=== PATIENT | female | born 1990 | race Caucasian/White ===

== ENCOUNTER → 2019-08-31 16:47 | Outpatient (CLI) | payer BC, SELFPAY ==
[2019-08-31 19:09] LABS: CRP < 2.90 mg/L (0.0-3.0)
[2019-09-03 14:07] LABS: Endomysial Antibody IgA Negative (Negative)
[2019-09-03 14:30] LABS: Immunoglobulin A 294 mg/dL (87-352); t-Transglutaminase IgA <2 U/mL (0-3)
== END ==
PROVIDERS: PCP Internal Medicine; Referring Provider Internal Medicine Gastroenterology; Visit Provider Internal Medicine Gastroenterology
DX: R19.7 Diarrhea, unspecified (principal); R10.9 Unspecified abdominal pain
CPT/HCPCS: 36415; 82784; 83516; 86140; 86255

== ENCOUNTER 2019-11-30 14:25 | Outpatient (RCR) | payer BC, SELFPAY | END 2019-12-14 23:59 | LOC: EMPH 14:25 | PROVIDERS: PCP Internal Medicine; Referring Provider Family Medicine Geriatric Medicine; Visit Provider Family Medicine Geriatric Medicine | DX: Z11.59 Encounter for screening for other viral diseases (principal) | CPT/HCPCS: 87635; U0003 ==

== ENCOUNTER 2020-01-12 08:54 | Outpatient (RCR) | payer OTHER, SELFPAY | END 2020-01-14 23:59 | LOC: EMPH 08:54 | PROVIDERS: PCP Internal Medicine; Referring Provider Family Medicine Geriatric Medicine; Visit Provider Family Medicine Geriatric Medicine | DX: Z03.818 Encounter for observation for suspected exposure to other biological agents ruled out (principal) | CPT/HCPCS: 87426 ==

== ENCOUNTER 2020-02-08 09:58 | Outpatient (RCR) | payer OTHER, SELFPAY | END 2020-02-13 23:59 | LOC: EMPH 09:58 | PROVIDERS: PCP Internal Medicine; Referring Provider Family Medicine Geriatric Medicine; Visit Provider Family Medicine Geriatric Medicine | DX: Z03.818 Encounter for observation for suspected exposure to other biological agents ruled out (principal) | CPT/HCPCS: 87426 ==

== ENCOUNTER → 2020-02-29 | Outpatient (CLI) | payer OTHER, SELFPAY ==
[2020-02-29 09:56] VITALS: BMI 25.0
[2020-02-29 16:20] LABS: Chlamydia Trachomatis by PCR Negative (Negative); Neisserai gonorrhoeae by PCR Negative (Negative); Probe Check PASS; Sample Adequacy Control PASS; Specimen Processing Control PASS
== END | disposition home or self-care (01) ==
LOC: LABSPEC 12:04
PROVIDERS: PCP Internal Medicine; Referring Provider Nurse Practitioner Women's Health; Visit Provider Nurse Practitioner Women's Health
DX: Z11.3 Encounter for screening for infections with a predominantly sexual mode of transmission (principal)
CPT/HCPCS: 87491; 87591

== ENCOUNTER → 2020-03-12 | Outpatient (CLI) | payer OTHER, SELFPAY ==
[2020-03-12 10:43] VITALS: BMI 24.3
== END | disposition home or self-care (01) ==
LOC: LABSPEC 12:54
PROVIDERS: PCP Internal Medicine; Referring Provider Nurse Practitioner Women's Health; Visit Provider Nurse Practitioner Women's Health
DX: R30.9 Painful micturition, unspecified (principal)
CPT/HCPCS: 87086

== ENCOUNTER 2020-03-14 14:13 | Outpatient (RCR) | payer OTHER, SELFPAY | END 2020-03-15 23:59 | LOC: EMPH 14:13 | PROVIDERS: PCP Internal Medicine; Referring Provider Family Medicine Geriatric Medicine; Visit Provider Family Medicine Geriatric Medicine | DX: Z03.818 Encounter for observation for suspected exposure to other biological agents ruled out (principal) | CPT/HCPCS: 87426 ==

== ENCOUNTER → 2020-04-02 15:23 | Outpatient (CLI) | payer OTHER, SELFPAY ==
[2020-04-02 14:22] VITALS: BMI 23.8
[2020-04-02 15:49] LABS: Absolute Lymphocyte Count 2.84 X10^3/uL (0.83-4.51); Absolute Neutrophil Count 7.7 X10^3/uL (2.0-7.7); Basophil# 0.05 X10^3/uL; Basophil% 0.4 % (0-1); Eosinophils% 1.7 % (0-5); Hematocrit 37.6 % (37-47); Hemoglobin 12.6 g/dL (12.0-15.0); Lymphocyte # 2.84 X10^3/ul (4.0); Lymphocyte % 24.5 % (19-41); Mean Corp Hgb Conc 33.5 g/dL (32-36); Mean Corpuscular Hgb 28.8 pg (27.0-32.0); Mean Corpuscular Volume 85.8 fL (81-99); Mean Platelet Vol. 10.1 fl (6.2-12.0); Monocyte# 0.74 X10^3/uL; Monocyte% 6.4 % (0-10); NRBC Flagged by Analyzer 0 % (0-5); Neutrophil # 7.72 X10^3/uL (2.7-7.7); Neutrophil % 66.7 % (47-70); Platelet Count 314 K/mm3 (150-450); RBC Distribution Width CV 12.3 % (11.6-14.6); RBC Distribution Width SD 38.6 fl (35.1-43.9); Red Blood Count 4.38 M/mm3 (4.2-5.4); White Blood Count 11.6 K/mm3 (4.4-11.0)
[2020-04-02 17:25] LABS: Amphetamine Urine VISTA NEGATIVE (<1000 ng/mL); Barbiturate Urine VISTA NEGATIVE (< 200 ng/mL); Benzodiazepine Urine VISTA NEGATIVE (< 200 ng/mL); Cocaine Urine VISTA NEGATIVE (< 300 ng/mL); Ecstacy Urine VISTA NEGATIVE (< 500 ng/mL); Methadone Urine VISTA NEGATIVE (< 300 ng/mL); PCP Urine VISTA NEGATIVE (< 25 ng/mL); THC Urine VISTA NEGATIVE (< 50 ng/mL); Vista UDS pH Range 6
[2020-04-03 09:13] LABS: HIV - WCH Non-Reactive (Nonreactive); Hepatitis B Surface Antigen Non-Reactive (Nonreactive); Hepatitis C Antibody Non-Reactive (Nonreactive); Rubella IgG Reactive (Nonreactive)
[2020-04-05 03:03] LABS: Rapid Plasmin Reagin (RPR) NONREACTIVE (NONREACTIVE)
== END ==
PROVIDERS: PCP Internal Medicine; Referring Provider Obstetrics & Gynecology; Visit Provider Obstetrics & Gynecology
DX: Z34.90 Encounter for supervision of normal pregnancy, unspecified, unspecified trimester (principal)
CPT/HCPCS: 36415; 80307; 85025; 86592; 86703; 86762; 86803; 86850; 86900; 86901; 87086; 87088; 87340

== ENCOUNTER 2020-04-13 14:14 | Outpatient (RCR) | payer OTHER, SELFPAY ==
[2020-03-12 10:43] VITALS: BMI 24.3
== END 2020-04-15 23:59 ==
LOC: EMPH 14:14
PROVIDERS: PCP Internal Medicine; Referring Provider Family Medicine Geriatric Medicine; Visit Provider Family Medicine Geriatric Medicine
DX: Z03.818 Encounter for observation for suspected exposure to other biological agents ruled out (principal)
CPT/HCPCS: 87426

== ENCOUNTER → 2020-05-04 | Outpatient (CLI) | payer OTHER, SELFPAY ==
[2020-05-04 13:04] VITALS: BMI 24.7
[2020-05-04 19:31] LABS: Chlamydia Trachomatis by PCR Negative (Negative); Neisserai gonorrhoeae by PCR Negative (Negative); Probe Check PASS; Sample Adequacy Control PASS; Specimen Processing Control PASS
== END | disposition home or self-care (01) ==
LOC: LABSPEC 16:45
PROVIDERS: PCP Internal Medicine; Referring Provider Obstetrics & Gynecology; Visit Provider Obstetrics & Gynecology
DX: Z34.90 Encounter for supervision of normal pregnancy, unspecified, unspecified trimester (principal)
CPT/HCPCS: 87491; 87591

== ENCOUNTER 2020-05-11 09:37 | Outpatient (RCR) | payer OTHER, SELFPAY ==
[2020-04-06 08:46] VITALS: BMI 24.0
== END 2020-05-13 23:59 ==
LOC: EMPH 09:37
PROVIDERS: PCP Internal Medicine; Referring Provider Family Medicine Geriatric Medicine; Visit Provider Family Medicine Geriatric Medicine
DX: Z03.818 Encounter for observation for suspected exposure to other biological agents ruled out (principal)
CPT/HCPCS: 87426

== ENCOUNTER 2020-06-04 10:41 | Outpatient (RCR) | payer OTHER, SELFPAY ==
[2020-05-04 13:04] VITALS: BMI 24.7
== END 2020-06-13 23:59 ==
LOC: EMPH 10:41
PROVIDERS: PCP Internal Medicine; Referring Provider Family Medicine Geriatric Medicine; Visit Provider Family Medicine Geriatric Medicine
DX: Z03.818 Encounter for observation for suspected exposure to other biological agents ruled out (principal)
CPT/HCPCS: 87426

== ENCOUNTER → 2020-06-22 13:47 | Outpatient (CLI) | payer OTHER, SELFPAY ==
[2020-05-04 13:04] VITALS: BMI 24.7
[2020-06-01 13:55] VITALS: BMI 25.2
--- NOTE | 2020-06-22 13:49 | US_ITS ---
STUDY: SECOND AND THIRD TRIMESTER OBSTETRICAL ULTRASOUND REASON FOR EXAM: Female, 29 years old anatomy LMP: 02/04/2020 TECHNIQUE: Transabdominal TECHNICAL QUALITY: Adequate. PRIOR ULTRASOUND: None. FINDINGS: There is a single intrauterine fetus. The fetus is in a breech presentation. There is demonstrated cardiac activity with a heart rate of 145 bpm. There is a normal amniotic fluid volume. The largest amniotic fluid pocket measures 5.1 cm. The amniotic fluid index (LUPE) is cm. The placenta is anterior with a marginal previa. There are Grade 0 placental changes. The cervix measures 4.6 cm in length. The adnexal regions are not visualized. BIOMETRY: BPD: 4.5 cm: 19 weeks, 4 days HC: 17.0 cm: 19 weeks, 4 days AC: 15.6 cm: 20 weeks, 5 days FL: 3.1 cm: 19 weeks, 5 days CI: 75.38 FL/BPD: 69.77 FL/HC: 18.50 FL/AC: 20.18 HC/AC: 1.09 age by current US: 19 weeks, 5 days. ELEUTERIO by current US: 11/11/2020. Estimated weight: 344 grams, +/- 52 grams, 69 %. Age by LMP: 19 weeks, 6 days. ELEUTERIO by LMP: 11/10/2020. ANATOMY: Gender: Male Cranium: Normal lateral ventricles. Normal choroid plexus. Normal cerebellum. Normal cisterna magna. Normal face, nose and lips. Chest: Normal 4-chamber heart. Abdomen/Pelvis: Normal diaphragm. Normal stomach. Normal abdominal wall. Normal cord insertion. Normal 3 vessel cord. Normal kidneys. Normal bladder. Spine: Normal cervical spine. Normal thoracic spine. Normal lumbar spine. Normal sacrum. Extremities: Normal bilateral upper extremities. Normal bilateral lower extremities. US/OB Anatomy Scan IMPRESSION: Living intrauterine of 19 weeks 5 days as described above. Electronically Signed: Elbert Bermeo MD at 11:33 EDT Tel , Service support ,
== END ==
PROVIDERS: PCP Internal Medicine; Referring Provider Obstetrics & Gynecology; Visit Provider Obstetrics & Gynecology
DX: Z34.90 Encounter for supervision of normal pregnancy, unspecified, unspecified trimester (principal)
CPT/HCPCS: 76805; 76817

== ENCOUNTER 2020-07-13 16:49 | Outpatient (RCR) | payer OTHER, SELFPAY ==
[2020-06-01 13:55] VITALS: BMI 25.2
== END 2020-07-13 23:59 ==
LOC: EMPH 16:49
PROVIDERS: PCP Internal Medicine; Referring Provider Family Medicine Geriatric Medicine; Visit Provider Family Medicine Geriatric Medicine
DX: Z03.818 Encounter for observation for suspected exposure to other biological agents ruled out (principal)
CPT/HCPCS: 87426

== ENCOUNTER → 2020-08-10 11:59 | Outpatient (CLI) | payer OTHER, SELFPAY ==
[2020-07-27 13:45] VITALS: BMI 26.4
[2020-08-10 12:23] LABS: Absolute Lymphocyte Count 1.99 X10^3/uL (0.83-4.51); Absolute Neutrophil Count 8.1 X10^3/uL (2.0-7.7); Basophil# 0.02 X10^3/uL; Basophil% 0.2 % (0-1); Eosinophil# 0.13 X10^3/uL; Eosinophils% 1.2 % (0-5); Hematocrit 34.5 % (37-47); Hemoglobin 11.2 g/dL (12.0-15.0); Lymphocyte # 1.99 X10^3/ul (0.83-4.51); Lymphocyte % 18.5 % (19-41); Mean Corp Hgb Conc 32.5 g/dL (32-36); Mean Corpuscular Hgb 29.8 pg (27.0-32.0); Mean Corpuscular Volume 91.8 fL (81-99); Monocyte# 0.43 X10^3/uL; NRBC Flagged by Analyzer 0 % (0-5); Neutrophil # 8.13 X10^3/uL (2.7-7.7); Neutrophil % 75.5 % (47-70); Platelet Count 281 K/mm3 (150-450); RBC Distribution Width CV 13.2 % (11.6-14.6); RBC Distribution Width SD 44.8 fl (35.1-43.9); Red Blood Count 3.76 M/mm3 (4.2-5.4); White Blood Count 10.8 K/mm3 (4.4-11.0)
[2020-08-10 12:43] LABS: Glucose Challenge Gest 1H 50g 154 mg/dL (70-140)
== END ==
PROVIDERS: PCP Internal Medicine; Referring Provider Obstetrics & Gynecology; Visit Provider Obstetrics & Gynecology
DX: Z34.02 Encounter for supervision of normal first pregnancy, second trimester (principal)
CPT/HCPCS: 82950; 85025

== ENCOUNTER → 2020-08-17 13:38 | Outpatient (CLI) | payer OTHER, SELFPAY ==
[2020-06-01 13:55] VITALS: BMI 25.2
[2020-07-27 13:45] VITALS: BMI 26.4
--- NOTE | 2020-08-17 13:40 | US_ITS ---
STUDY: SECOND AND THIRD TRIMESTER OBSTETRICAL ULTRASOUND - LIMITED REASON FOR EXAM: Female, 30 years old check placenta location LMP: 02/04/2020. PRIOR ULTRASOUND: Comparison is made with prior examination dated 06/22/2020. TECHNIQUE: Transabdominal and Transvaginal TECHNICAL QUALITY: Adequate. FINDINGS: There is a single intrauterine fetus. The fetus is in a cephalic presentation. There is demonstrated cardiac activity with a heart rate of 148 bpm. There is a normal amniotic fluid volume. The largest amniotic fluid pocket measures 7.3 cm x 4.9 cm. The amniotic fluid index (LUPE) is within normal limits. The placenta is anterior in location and is not low lying. The marginal placenta previa as result. There are Grade 0 placental changes. The cervix measures 4.3 cm in length. BIOMETRY: Age by LMP: 27 weeks, 6 days. ELEUTERIO by LMP: 11/10/2020. US/Transvaginal w/Preg US IMPRESSION: The placenta lies along the anterior wall of the uterus and is not low-lying. Electronically Signed: Howie Looney MD at 14:51 EDT , Service support ,
--- NOTE | 2020-08-17 13:40 | US_ITS ---
STUDY: SECOND AND THIRD TRIMESTER OBSTETRICAL ULTRASOUND - LIMITED REASON FOR EXAM: Female, 30 years old check placenta location LMP: 02/04/2020. PRIOR ULTRASOUND: Comparison is made with prior examination dated 06/22/2020. TECHNIQUE: Transabdominal and Transvaginal TECHNICAL QUALITY: Adequate. FINDINGS: There is a single intrauterine fetus. The fetus is in a cephalic presentation. There is demonstrated cardiac activity with a heart rate of 148 bpm. There is a normal amniotic fluid volume. The largest amniotic fluid pocket measures 7.3 cm x 4.9 cm. The amniotic fluid index (LUPE) is within normal limits. The placenta is anterior in location and is not low lying. The marginal placenta previa as result. There are Grade 0 placental changes. The cervix measures 4.3 cm in length. BIOMETRY: Age by LMP: 27 weeks, 6 days. ELEUTERIO by LMP: 11/10/2020. US/OB Limited (No Biometrics) IMPRESSION: The placenta lies along the anterior wall of the uterus and is not low-lying. Electronically Signed: Howie Looney MD at 14:51 EDT , Service support ,
== END ==
PROVIDERS: PCP Internal Medicine; Referring Provider Obstetrics & Gynecology; Visit Provider Obstetrics & Gynecology
DX: O44.20 Partial placenta previa NOS or without hemorrhage, unspecified trimester (principal); Z3A.00 Weeks of gestation of pregnancy not specified
CPT/HCPCS: 76815; 76817

== ENCOUNTER → 2020-08-22 06:36 | Outpatient (CLI) | payer OTHER, SELFPAY ==
[2020-07-27 13:45] VITALS: BMI 26.4
[2020-08-22 07:21] LABS: Glucose GTT-Gestation. Fasting 76 mg/dL (<105)
[2020-08-22 08:23] LABS: Glucose GTT-Gestational 1 Hr 174 mg/dL (<190)
[2020-08-22 09:47] LABS: Glucose GTT-Gestational 2 Hr 158 mg/dL (<165)
[2020-08-22 10:56] LABS: Glucose GTT-Gestational 3 Hr 51 L (<145)
== END ==
PROVIDERS: PCP Internal Medicine; Referring Provider Obstetrics & Gynecology; Visit Provider Obstetrics & Gynecology
DX: Z13.1 Encounter for screening for diabetes mellitus (principal)
CPT/HCPCS: 36415; 82951; 82952

== ENCOUNTER 2020-09-05 09:13 | Outpatient (RCR) | payer OTHER, SELFPAY ==
[2020-06-29 13:36] VITALS: BMI 26.4
[2020-08-24 13:53] VITALS: BMI 27.1
== END 2020-09-12 23:59 ==
LOC: EMPH 09:13
PROVIDERS: PCP Internal Medicine; Referring Provider Family Medicine Geriatric Medicine; Visit Provider Family Medicine Geriatric Medicine
DX: Z03.818 Encounter for observation for suspected exposure to other biological agents ruled out (principal)
CPT/HCPCS: 87426

== ENCOUNTER → 2020-10-19 | Outpatient (CLI) | payer OTHER, SELFPAY ==
[2020-10-19 13:48] VITALS: BMI 27.1
== END | disposition home or self-care (01) ==
LOC: LABSPEC 16:48
PROVIDERS: PCP Internal Medicine; Referring Provider Obstetrics & Gynecology; Visit Provider Obstetrics & Gynecology
DX: Z34.02 Encounter for supervision of normal first pregnancy, second trimester (principal)
CPT/HCPCS: 87081

== ENCOUNTER 2020-11-13 12:21 | Outpatient (RCR) | payer OTHER, SELFPAY ==
[2020-09-07 13:56] VITALS: BMI 27.1
== END 2020-11-13 23:59 ==
LOC: EMPH 12:21
PROVIDERS: PCP Internal Medicine; Referring Provider Family Medicine Geriatric Medicine; Visit Provider Family Medicine Geriatric Medicine
DX: Z03.818 Encounter for observation for suspected exposure to other biological agents ruled out (principal)
CPT/HCPCS: 87426

== ENCOUNTER 2020-11-15 13:45 | Inpatient (IN) | payer OTHER, SELFPAY ==
[2020-10-19 13:48] VITALS: BMI 27.1
[2020-11-15] VITALS (38 sets, daily range): BP systolic 103–149; BP diastolic 55–89; PULSE 61–149; TEMP 35.8–36.7; O2SAT 81–100; BMI 28.4
[2020-11-15 13:45] LABS: ROM Internal Control Test YES-OK TO RESULT pt. (Internal QC)
[2020-11-15 13:46] LABS: ROM Patient Test POSITIVE (Negative)
[2020-11-15] MEDS: Lactated Ringers 1,000 ML 50 ML IV (14:40)
[2020-11-15 14:53] LABS: Absolute Lymphocyte Count 2.39 X10^3/uL (0.83-4.51); Absolute Neutrophil Count 5.4 X10^3/uL (2.0-7.7); Basophil# 0.03 X10^3/uL; Basophil% 0.4 % (0-1); Eosinophil# 0.03 X10^3/uL; Eosinophils% 0.4 % (0-5); Hematocrit 36.5 % (37-47); Lymphocyte # 2.39 X10^3/ul (0.83-4.51); Lymphocyte % 29.5 % (19-41); Mean Corp Hgb Conc 32.9 g/dL (32-36); Mean Corpuscular Hgb 28.8 pg (27.0-32.0); Mean Corpuscular Volume 87.5 fL (81-99); Mean Platelet Vol. 12.5 fl (6.2-12.0); Monocyte# 0.28 X10^3/uL; Monocyte% 3.5 % (0-10); NRBC Flagged by Analyzer 0 % (0-5); Neutrophil # 5.35 X10^3/uL (2.7-7.7); Neutrophil % 65.8 % (47-70); Platelet Count 215 K/mm3 (150-450); RBC Distribution Width CV 13.8 % (11.6-14.6); RBC Distribution Width SD 43.4 fl (35.1-43.9); Red Blood Count 4.17 M/mm3 (4.2-5.4); White Blood Count 8.1 K/mm3 (4.4-11.0)
[2020-11-15] MEDS: Oxytocin 30 units/NS 500 ml 30 UNITS/500 ML IV.SOLN IV (16:49)
--- NOTE | 2020-11-15 17:17 | HP.PCM.OB_ITS ---
HPI - General General Date of Admission: 11/15/20 HPI Narrative ORION SHERIDAN, is a 30 F at 40/5 who presents in active labor. Made change from 2cm in triage this am to 3cm in office. Maternal Data Information ELEUTERIO Calculator Estimated Delivery Date Method Current WG Current Estimate 11/10/20 LMP (Certain) 40w 5d Other Estimates 11/07/20 Ultrasound #1 41w 1d PFSH PFSH Medical History (Updated 11/15/20 @ 17:[address] Leena Brewster MD) Diarrhea Fatigue GERD (gastroesophageal reflux disease) Hemorrhoids IBS (irritable bowel syndrome) mild leukocytopenia Seasonal allergies Home Medications famotidine 20 mg tablet 20 mg PO BID #60 tablet 06/26/20 [Rx Last Taken 11/14/20 21:00] prenat.vits,gustavo,[id number] [ #2] 1 tab PO DAILY 11/15/20 [History Last Taken 11/14/20 09:00] Allergy/AdvReac Type Severity Reaction Status Date / Time No Known Allergies Allergy Verified 11/15/20 13:11 Family History (Updated 11/15/20 @ 14:42 by Lacey Castillo) Mother Kidney stones Carotid artery disease Cancer of kidney Hypertension Father Blood disorder Hypertension Other Arthritis Surgical History History of colonoscopy Left ACL tear Ptosis [place] teeth extracted Social History household members: spouse number of children: 0 current occupational status: employed current occupation: [employer] history of recent travel: No sexually active: Yes Smoking Status: Never smoker alcohol intake: current alcohol intake frequency: a few times a month substance use type: does not use diet: gluten free what type of physical activity do you participate in: yoga frequency: 1-2 times per week seatbelt use: always do you feel safe at home: Yes additional social history: - Dariusz History 1 Elective abortions Hx Para 0 Spontaneous abortions Hx # Term Pregnancies Ectopic pregnancies Hx # Pregnancies Multiple births # of living children Visit Details Expected Delivery Route/Plan Labor Preferences- CB/BF classes: scheduled labor support person: Dariusz labor intervention preferences: open to standard interventions, open to baby meds pain management options preferred: epidural cut cord/dad catch: both : [] PP control planned: [] discussed possible routes of delivery and associated risks: discussed possible delivery modalities and possible indications for each including R/B/A of , VAVD, FAVD, and CS. questions answered. special requests: [] Plans covid vaccine: vaccine in march flu vaccine: tdap vaccine: given rhogam: na LARC form signed: declined movement and labor precautions reviewed. Problem list reviewed and updated with the most current plan of care details and appropriate orders placed. Relevant counseling for the gestational age provided. Continue routine care and follow up unless otherwise noted in visit notes/problem list details OB Flowsheet Initial Weight: Not Recorded Date -?-?-?-?-?-?-?-?-?-?-?-?- EGA Weight BP Urine Prot -?-?-?-?-?-?-?-?-?-?-?-?- Glucose FHR FuHt Pres Dilation -?-?-?-?-?-?-?-?-?-?-?-?- Effaced St Visit Note 04/02/20 -?-?-?-?-?-?-?-?-?-?-?-?- 8w 2d 159 lb 130/70 -?-?-?-?-?-?-?-?-?-?-?-?- 170 -?-?-?-?-?-?-?-?-?-?-?-?- GP - CRL 19.2mm consistent with LMP. 05/04/20 -?-?-?-?-?-?-?-?-?-?-?-?- 12w 6d 158 lb 138/78 Negative -?-?-?-?-?-?-?-?-?-?-?-?- Negative 160 -?-?-?-?-?-?-?-?-?-?-?-?- SM- no vb crampi ng some nausea still 06/01/20 -?-?-?-?-?-?-?-?-?-?-?-?- 16w 6d 161 lb 124/68 Negative -?-?-?-?-?-?-?-?-?--?-?-?- Negative 145 -?-?-?-?-?-?-?-?-?-?-?-?- GP - no cramping or bleeding. Feeling better. Anatomy scan scheduled. 06/29/20 -?-?-?-?-?-?-?-?-?-?-?-?- 20w 6d 169 lb 142/60 Negative -?-?-?-?-?-?-?-?-?-?-?-?- Negative 145 -?-?-?-?-?-?-?-?-?-?-?-?- SM- no vb lof go od fm no regular ctx. 07/27/20 -?-?-?-?-?-?-?-?-?-?-?-?- 24w 6d 168 lb 8 oz 122/68 Nega tive -?-?-?-?-?-?-?-?-?-?-?-?- Negative 150 24 -?-?-?-?-?-?-?-?-?-?-?-?- GP - no LOF, VB, dFM, ctx. Denies complaints. 08/24/20 -?-?-?-?-?-?-?-?-?-?-?-?- 28w 6d 173 lb 4 oz 120/68 Nega tive -?-?-?-?-?-?-?-?-?-?-?-?- Negative 155 28 -?-?-?-?-?-?-?-?-?-?-?-?- GP - no LOF, VB, DFM, ctx. Failed 1h GCT - passed 3h. 09/07/20 -?-?-?-?-?-?-?-?-?-?-?-?- 30w 6d 175 lb 126/68 Negative -?-?-?-?-?-?-?-?-?-?-?-?- Negative 150 31 -?-?-?-?-?-?-?-?-?-?-?-?- SM- no vb lof go od fm no regular ctx 09/21/20 -?-?-?-?-?-?-?-?-?-?-?-?- 32w 6d 275 lb 175 lb 132/72 Negative -?-?-?-?-?-?-?-?-?-?-?-?- Negative 140 33 -?-?-?-?-?-?-?-?-?-?-?-?- SM- no vb lof go od fm no reuglar ctx, cb classes tomorrow 10/05/20 -?-?-?-?-?-?-?-?-?-?-?-?- 34w 6d 182 lb 130/70 Negative -?-?-?-?-?-?-?-?-?-?-?-?- Negative 140 34 -?-?-?-?-?-?-?-?-?-?-?-?- GP - no LOF, VB, DFM, ctx. Discussed labor preferences and routes of delivery. Brief US done due to concern for irregular HR, but appeared regular on ultrasound 10/19/20 -?-?-?-?-?-?-?-?-?-?-?-?- 36w 6d 181 lb 4 oz 120/82 Nega tive -?-?-?-?-?-?-?-?-?-?-?-?- Negative 130 37 Cephalic 0 -?-?-?-?-?-?-?-?-?-?-?-?- GP - no LOF, VB, DFM, ctx. GBS today. 10/26/20 -?-?-?-?-?-?-?-?-?-?-?-?- 37w 6d 183 lb 126/74 Negative -?-?-?-?-?-?-?-?-?-?-?-?- Negative 125 37 Cephalic 0 -?-?-?-?-?-?-?-?-?-?-?-?- GP - no LOF, VB, dFM, regular ctx. Denies complaints 11/02/20 -?-?-?-?-?-?-?-?-?-?-?-?- 38w 6d 184 lb 110/74 Negative -?-?-?-?-?-?-?-?-?-?-?-?- Negative 130 38 Cephalic 1 -?-?-?-?-?-?-?-?-?-?-?-?- 50 -3 SM- no vb lof good fm no regular ctx 11/09/20 -?-?-?-?-?-?-?-?-?-?-?-?- 39w 6d 184 lb 136/78 Negative -?-?-?-?-?-?-?-?-?-?-?-?- Negative 130 39 Cephalic 1 -?--?-?-?-?-?-?-?-?-?-?-?- SM- no vb lof go od fm no regular ctx SM- no vb lof good fm no reg ular ctx, discussed IOL at 41- fu next for repeat exam to determine method of induciton 11/15/20 -?-?-?-?-?-?-?-?-?-?-?-?- 40w 5d 182 lb 4 oz 138/80 Nega tive -?-?-?-?-?-?-?-?-?-?-?-?- Negative 130 Cephalic 3 -?-?-?-?-?-?-?-?-?-?-?-?- 70 -2 GP - Seen in [facility] this am for bleeding and ctx. Cervix changed from 2 to 3cm. Significant bleeding on pad. Spec exam with questionable ROM - ROM+ sent. Will admit for active labor 11/15/20 -?-?-?-?-?-?-?-?-?-?-?-?- 40w 5d 181 lb 6.4 oz 120/78 130/89 130/89 118/72 -?-?-?-?-?-?-?-?-?-?-?-?- -?-?-?-?-?-?-?-?-?-?-?-?- NST FHR Rate Baby A Baseline: 130 Variability:: Moderate Accelerations:: 15 x 15 Decelerations:: None NST Reactive:: Yes Uterine Activity:: q5min ROS Eyes Eyes: Reports systems reviewed and no addt'l complaints, except as documented ENT HEENT: Reports systems reviewed and no addt'l complaints, except as documented Cardiovascular Cardiovascular: Reports systems reviewed and no addt'l complaints, except as documented Respiratory/Chest Respiratory/Chest: Reports systems reviewed and no addt'l complaints, except as documented Gastrointestinal Gastrointestinal: Reports systems reviewed and no addt'l complaints, except as documented Genitourinary Genitourinary: Reports systems reviewed and no addt'l complaints, except as documented Musculoskeletal Musculoskeletal: Reports systems reviewed and no addt'l complaints, except as documented Integumentary Integumentary: Reports systems reviewed and no addt'l complaints, except as documented Neurologic Neurologic: Reports systems reviewed and no addt'l complaints, except as documented Psychiatric Psychiatric: Reports systems reviewed and no addt'l complaints, except as documented Endocrine Endocrinology: Reports systems reviewed and no addt'l complaints, except as documented Hematologic/Lymphatic Hematologic/Lymphatic: Reports systems reviewed and no addt'l complaints, except as documented Allergic/Immunologic Allergic/Immunologic: Reports systems reviewed and no addt'l complaints, except as documented Vital Signs Vital Signs Vital Signs: 11/15/20 11:21 11/15/20 11:32 11/15/20 14:17 Temperature 97.9 F Temperature Source Temporal Pulse Rate 80 83 89 Blood Pressure 120/78 130/89 H BP Systolic 120 130 BP Diastolic 78 89 Pulse Ox 97 97 11/15/20 14:19 11/15/20 14:24 11/15/20 14:44 Temperature 98.0 F Temperature Source Temporal Pulse Rate 89 100 Blood Pressure 118/72 BP Systolic 118 BP Diastolic 72 Pulse Ox 96 83 11/15/20 14:55 11/15/20 14:56 Temperature Temperature Source Pulse Rate Blood Pressure BP Systolic BP Diastolic Pulse Ox 84 98 Weight Weight: 181 lb 6.4 oz Body Mass Index (BMI) 28.4 Physical Exam Const alert, oriented x3, no apparent distress, average body habitus, healthy appearing and well nourished HEENT normocephalic and moist oral mucous membranes Head and Scalp: atraumatic Eyes PERRL and EOMs intact bilaterally Neck full ROM Resp normal respiratory effort, no retractions and no use of accessory muscles Cardio regular rate and regular rhythm GI soft to palpation, non-tender and non-distended Extremity normal to inspection and full ROM Skin no rashes or lesions noted Neuro no focal motor deficits and no sensory deficits noted Psych mental status grossly normal, affect normal, speech normal and activity/motor behavior normal Labs Labs Labs: Blood Type O POSITIVE Antibody Screen NEGATIVE Hct 36.5 % (37-47) L Hgb 12.0 g/dL (12.0-15.0) Obstetrics US VZV IgG Antibody 1429 index (Immune >165) Rubella IgG Antibody Reactive (Nonreactive) Hep Bs Antigen Non-Reactive (Nonreactive) HIV 1&2 Antibody Non-Reactive (Nonreactive) C.trachomatis DNA (PCR) Negative (Negative) Glucose 1 Hr 50 gm 154 mg/dL (70-140) H Assessment & Plan (1) IBS (irritable bowel syndrome): QUALIFIERS: Irritable bowel syndrome type: unspecified Qualified Code(s): K58.9 - Irritable bowel syndrome without diarrhea COMMENT: Has had worsening symptoms during . 2 prior colonoscopies. Discussed safe medications. (2) Supervision of normal : QUALIFIERS: Normal : normal first Trimester: second trimester Qualified Code(s): Z34.02 - Encounter for supervision of normal first , second trimester COMMENT: PRR ELEUTERIO 11/10/20 boy carroll Spouse: Dariusz (3) : QUALIFIERS: Weeks of gestation: 40 weeks Qualified Code(s): Z3A.40 - 40 weeks gestation of COMMENT: declines genetic and carrier,ntd screen. nl anatomy; GBS NEG (4) Active labor at term: PLAN: Patient presents IAL, plan expectant management for , pitocin/AROM PRN if needed. Pain management: plans epidural. GBS negative. Management of any complications: none I have reviewed the [facility] and made any clinically relevant updates.
[2020-11-15] MEDS: Lactated Ringers 500 ML 999 ML IV ×2 (17:38→21:18)
[2020-11-15] MEDS: Ondansetron 4 MG/2 ML Vial IV (21:18)
[2020-11-15] MEDS: Lactated Ringers 1,000 ML 200 ML IV (22:22)
[2020-11-15] MEDS: fentaNYL-bupivacaine (epidural) 100 ML BAG EPIDURAL (23:11)
[2020-11-16] VITALS (19 sets, daily range): BP systolic 116–139; BP diastolic 58–90; PULSE 64–126; RESP 16; TEMP 36.3–37.2; O2SAT 98–100
[2020-11-16] MEDS: Mag Hydrox/Al Hydrox/Simeth 30 ML UDC PO (01:39)
[2020-11-16] MEDS: Oxytocin 30 units/NS 500 ml 30 UNITS/500 ML IV.SOLN 334 UNITS IV (02:45)
[2020-11-16] MEDS: Methylergonovine 0.2 MG/ML Ampul IM (02:46)
--- NOTE | 2020-11-16 03:15 | OP.PCM_ITS ---
Assessment & Plan (1) Spontaneous vaginal delivery: COMMENT: GP Boy-Carroll 2nd degree (2) Active labor at term: (3) IBS (irritable bowel syndrome): QUALIFIERS: Irritable bowel syndrome type: unspecified Qualified Code(s): K58.9 - Irritable bowel syndrome without diarrhea COMMENT: Has had worsening symptoms during . 2 prior colonoscopies. Discussed safe medications. (4) Supervision of normal : QUALIFIERS: Normal : normal first Trimester: second trimester Qualified Code(s): Z34.02 - Encounter for supervision of normal first , second trimester COMMENT: PRR ELEUTERIO 11/10/20 boy carroll Spouse: Dariusz (5) : QUALIFIERS: Weeks of gestation: 40 weeks Qualified Code(s): Z3A.40 - 40 weeks gestation of COMMENT: declines genetic and carrier,ntd screen. nl anatomy; GBS NEG Maternal Data Information ELEUTERIO Calculator Estimated Delivery Date Method Current WG Current Estimate 11/10/20 LMP (Certain) 40w 6d Other Estimates 11/07/20 Ultrasound #1 41w 2d Vaginal Delivery Maternal Presentation Maternal Presentation: Active Labor and Spontaneous Rupture of Membranes Maternal Presentation: 30-year-old G1, P0 40 weeks gestation admitted in active labor. Patient was augmented with Pitocin. Operative Information Date of Procedure: 11/16/20 Pre-Operative Diagnosis: Term , active labor, spontaneous rupture of membranes Post-Operative Diagnosis: Same Surgery / Procedure Performed: Spontaneous Vaginal Delivery Type of Anesthesia: Epidural Drain: Munoz to straight drain Estimated Blood Loss: 400 Findings Description of Procedure: Patient began pushing and delivered the head in the ZULMA presentation. The head was delivered atraumatically and no nuchal cord was noted. The anterior and posterior shoulders delivered without complication followed by the rest of the infant and the was placed on the maternal abdomen. Delayed cord clamping was employed for approximately 60 seconds. Cord was clamped and cut and gentle traction was applied to the cord and the placenta delivered spontaneously immediately following it was noted to be intact with three-vessel cord. The perineum and vagina were inspected and a midline second- degree perineal laceration was noted and repaired in the standard fashion using 3-0 Vicryl Rapide and 2-0 Vicryl suture. Uterine atony was noted. Tone was found to improve following bimanual uterine massage, Methergine, and Cytotec. EBL was 400 cc. Patient and infant tolerated delivery well. Presentation: Vertex and ZULMA Amniotic Membrane Rupture Type: Spontaneous Amniotic Fluid Description: Clear Placenta Disposition: [facility] Cord Vessel Description: 3 Vessels Cord Entanglement: None A Gender: Male Delayed Cord Clamping: Yes Post Vaginal Delivery Medications Given After Delivery: IV Pitocin, IM Methergin and - (Rectal Cytotec) Episiotomy Description: None Laceration: Midline, Perineal Extension/lac and 2nd degree Complication Complications: None Procedures Urinary/Genital [id number]: 20016 Vaginal Delivery [facility]
[2020-11-16] MEDS: miSOPROStol 200 MCG Tablet 1000 MCG RC (04:50)
[2020-11-16] MEDS: Ibuprofen 600 MG Tablet PO ×3 (05:54→20:44)
--- NOTE | 2020-11-16 06:38 | NURSING ---
Assisted pt up to BR. Educated on pericare, s/s to report, and pain. After standing up from toilet pt became dizzy and pale. Pt was assisted back to bed x2 RN's. Once lying in bed pt had normal color and stated she felt better. Instructed pt to continue to call for assistance when getting up. Pt verbalized understanding.
[2020-11-16] MEDS: Acetaminophen 500 MG Tablet 1000 MG PO (09:17)
[2020-11-16] MEDS: Senna/Docusate Sodium 1 Tablet PO (12:23)
--- NOTE | 2020-11-16 16:58 | PCM.DC ---
Discharge Instructions Diet Discharge Diet: No restrictions Activity Discharge Activity: Return to Normal Activity, May Not Drive (while taking narcotic pain medications.) and May Shower May resume sexual activity in: 4-6 weeks Dressing / Incision Call your doctor if your incision/area has: Continuous Slow Oozing, Sudden Increased Bleeding, Increased Pain/ Swelling, Increased Redness and Foul Smelling Discharge Follow Up Care When: Call to make an appointment with your doctor in 6 weeks. If you had elevated Blood Pressure or 4th degree laceration you will need to be seen in 2 weeks. Test Results: Test results from this visit will be discussed in further detail at your follow-up appointment, if applicable. Discharge Plan Admission Admit Date/Time: 11/15/20 13:45 Attending Provider: Leena Brewster Instructions Patient Instructions: After a Vaginal Discharge Orders/Prescriptions Prescriptions: New ibuprofen 800 mg tablet 800 mg PO Q8H PRN (Reason: pain) Qty: 30 RF: 1 Continued prenat.vits,gustavo,[id number] Tablet 1 tab PO DAILY RF: 0 famotidine [Pepcid] 20 mg tablet 20 mg PO BID Qty: 60 RF: 6
[2020-11-17] VITALS: BP 123/56; PULSE 70; RESP 16; TEMP 36.4; O2SAT 97
[2020-11-17] MEDS: Acetaminophen 500 MG Tablet 1000 MG PO ×2 (00:30→07:37)
[2020-11-17 05:00] VITALS: BP 125/87; PULSE 69; RESP 16; TEMP 36.3; O2SAT 96
[2020-11-17 07:49] VITALS: BP 129/80; PULSE 80; RESP 16; TEMP 36.6; O2SAT 98
--- NOTE | 2020-11-17 09:56 | PN.OBGYN_ITS ---
Subjective Subjective Patient doing well without complaints. Tolerating PO. Ambulating and voiding without difficulty. Breast feeding well. Denies chest pain, shortness of breath, calf pain/swelling, fevers, chills, lightheadedness. Objective Data Objective Data Vital Signs: Vital Signs Temp Pulse Resp BP Pulse Ox 97.9 F 80 16 129/80 H 98 11/17/20 07:49 11/17/20 07:49 11/17/20 07:49 11/17/20 07:49 11/17/20 07:49 Oxygen Delivery Method Room Air Weight: 181 lb 6.4 oz Body Mass Index (BMI) 28.4 Intake & Output: Intake and Output for Last 24 Hours 11/15/20 11/16/20 11/17/20 23:59 23:59 23:59 Intake Total 1401.14 / 1401.14 Output Total 1750 / 1750 Balance -348.86 / -348.86 Lab / Micro Data Result Diagrams: 11/15/20 14:40 ROS Constitutional Constitutional: Denies fever(s) Cardiovascular Cardiovascular: Denies chest pain, dyspnea or lightheadedness Gastrointestinal Gastrointestinal: Reports abdominal pain; Denies constipation or diarrhea Neurologic Neurologic: Denies dizziness or headache(s) Physical Exam Const alert, oriented x3, no apparent distress, average body habitus, healthy appea ring and well nourished HEENT normocephalic Head and Scalp: atraumatic Eyes PERRL and EOMs intact bilaterally Neck full ROM Lymph Lymphatic: no lymphadenopathy noted Resp normal respiratory effort, no retractions and no use of accessory muscles Cardio regular rate GI soft to palpation, non-tender and non-distended Palpation: other Other Details: fundus firm Extremity normal to inspection and no clubbing, cyanosis or edema Skin no rashes or lesions noted Neuro no focal motor deficits and no sensory deficits noted Psych mental status grossly normal, affect normal and speech normal Assessment & Plan (1) Spontaneous vaginal delivery: COMMENT: GP ALICIA Boy-Tanner 2nd degree PLAN: s/p PPD # 1 1. routine post delivery care 2. breast feeding- support given 3. rh positive 4. rubella immune
[2020-11-17] MEDS: Ibuprofen 600 MG Tablet PO (10:49)
[2020-11-17 13:14] VITALS: BP 119/86; PULSE 96; RESP 16; TEMP 36.5; O2SAT 95
--- NOTE | 2020-11-21 13:19 | NURSING ---
no answer and no voicemail on follow up phone call.
== END 2020-11-17 13:20 | disposition home or self-care (01) | DRG 807 ==
LOC: WPOUT 13:45 → WP 13:45
PROVIDERS: Admitting Provider Obstetrics & Gynecology; Visit Provider Obstetrics & Gynecology
DX: O99.62 Diseases of the digestive system complicating childbirth (principal); Z37.0 Single live birth; Z3A.40 40 weeks gestation of pregnancy; K58.9 Irritable bowel syndrome, unspecified; K21.9 Gastro-esophageal reflux disease without esophagitis; O70.1 Second degree perineal laceration during delivery; O62.2 Other uterine inertia
CPT/HCPCS: 59050; 84112; 85025; 86850; 86900; 86901; 99218; J7120; G0378; J2405

== ENCOUNTER → 2020-12-28 | Outpatient (CLI) | payer OTHER, SELFPAY ==
[2021-01-02 13:36] LABS: HPV Reflexed? NOT INDICATED
== END | disposition home or self-care (01) ==
LOC: LABSPEC 12:39
PROVIDERS: Referring Provider Obstetrics & Gynecology; Visit Provider Obstetrics & Gynecology
DX: Z12.4 Encounter for screening for malignant neoplasm of cervix (principal)
CPT/HCPCS: 88175; G0145

== ENCOUNTER 2021-03-14 10:14 | Outpatient (RCR) | payer OTHER, SELFPAY ==
[2020-11-14 00:15] VITALS: BMI 27.1
== END 2021-03-15 23:59 ==
LOC: EMPH 10:14
PROVIDERS: Referring Provider Family Medicine Geriatric Medicine; Visit Provider Family Medicine Geriatric Medicine
DX: Z03.818 Encounter for observation for suspected exposure to other biological agents ruled out (principal)
CPT/HCPCS: 87426; 87635; U0003; U0005

== ENCOUNTER 2022-02-17 10:15 | Outpatient (CLI) | payer OTHER, SELFPAY ==
[2022-02-17 10:44] LABS: Absolute Lymphocyte Count 2.57 X10^3/uL (0.83-4.51); Absolute Neutrophil Count 7.6 X10^3/uL (2.0-7.7); Basophil# 0.04 X10^3/uL; Basophil% 0.4 % (0-1); Eosinophil# 0.03 X10^3/uL; Eosinophils% 0.3 % (0-5); Hematocrit 40.4 % (37-47); Hemoglobin 13.6 g/dL (12.0-15.0); Lymphocyte # 2.57 X10^3/ul (0.83-4.51); Lymphocyte % 24.1 % (19-41); Mean Corp Hgb Conc 33.7 g/dL (32-36); Mean Corpuscular Hgb 28.8 pg (27.0-32.0); Mean Corpuscular Volume 85.4 fL (81-99); Monocyte# 0.43 X10^3/uL; NRBC Flagged by Analyzer 0 % (0-5); Neutrophil # 7.55 X10^3/uL (2.7-7.7); Neutrophil % 70.9 % (47-70); Platelet Count 314 K/mm3 (150-450); RBC Distribution Width CV 13.2 % (11.6-14.6); RBC Distribution Width SD 41.3 fl (35.1-43.9); Red Blood Count 4.73 M/mm3 (4.2-5.4); White Blood Count 10.7 K/mm3 (4.4-11.0)
[2022-02-17 11:28] LABS: Amphetamine Urine VISTA NEGATIVE (<1000 ng/mL); Barbiturate Urine VISTA NEGATIVE (< 200 ng/mL); Benzodiazepine Urine VISTA NEGATIVE (< 200 ng/mL); Cocaine Urine VISTA NEGATIVE (< 300 ng/mL); Ecstacy Urine VISTA NEGATIVE (< 500 ng/mL); Methadone Urine VISTA NEGATIVE (< 300 ng/mL); PCP Urine VISTA NEGATIVE (< 25 ng/mL); THC Urine VISTA NEGATIVE (< 50 ng/mL); Vista UDS pH Range 5
[2022-02-17 11:34] LABS: HIV - WCH Non-Reactive (Nonreactive); Hepatitis B Surface Antigen Non-Reactive (Nonreactive); Hepatitis C Antibody Non-Reactive (Nonreactive); Rubella IgG Reactive (Nonreactive); Syphilis Antibodies Non-reactive
[2022-02-19 05:07] LABS: Chlamydia By Nucleic Acid AMP Negative (Negative)
[2022-02-19 09:28] LABS: Gonococcus By Nucleic Acid AMP Negative (Negative)
== END 2022-02-17 23:59 | disposition home or self-care (01) ==
PROVIDERS: PCP Internal Medicine; Referring Provider Obstetrics & Gynecology; Visit Provider Obstetrics & Gynecology
DX: Z34.90 Encounter for supervision of normal pregnancy, unspecified, unspecified trimester (principal)
CPT/HCPCS: 36415; 80307; 85025; 86703; 86762; 86780; 86803; 86850; 86900; 86901; 87086; 87340; 87491; 87591

== ENCOUNTER → 2022-03-03 | Outpatient (CLI) | payer OTHER, SELFPAY ==
[2022-03-03 10:39] VITALS: BP 123/86; PULSE 99; RESP 16; TEMP 36.8
[2022-03-03] MEDS: Dextrose 5%-Lactated Ringers 1,000 ML 999 ML IV (11:20)
[2022-03-03] MEDS: 0.9% NaCl Peripheral Flush Adult/Peds IV (11:44)
[2022-03-03] MEDS: Ondansetron 4 MG/2 ML Vial IV (11:44)
== END | disposition home or self-care (01) ==
LOC: MEDOUTP 10:30
PROVIDERS: PCP Internal Medicine; Referring Provider Nurse Practitioner Women's Health; Visit Provider Nurse Practitioner Women's Health
DX: E86.0 Dehydration (principal)
CPT/HCPCS: 96372; A4216; J2405

== ENCOUNTER → 2022-04-30 | Outpatient (CLI) | payer OTHER, SELFPAY ==
--- NOTE | 2022-04-30 08:00 | US_ITS ---
STUDY: SECOND AND THIRD TRIMESTER OBSTETRICAL ULTRASOUND REASON FOR EXAM: Female, 31 years old Anatomy scan LMP: 12/01/2021 TECHNIQUE: Transabdominal and Transvaginal TECHNICAL QUALITY: Adequate. PRIOR ULTRASOUND: None. FINDINGS: There is a single intrauterine fetus. The fetus is in an transverse lie with the head on the maternal left side. There is demonstrated cardiac activity with a heart rate of 147 bpm. There is a normal amniotic fluid volume. The largest amniotic fluid pocket measures 4.9 cm x 3.3 cm. The amniotic fluid index (LUPE) is within normal limits. The placenta is posterior in location and is not low lying. There are Grade 0 placental changes. The cervix measures 5.8 cm in length. The bilateral adnexal regions are normal. BIOMETRY: BPD: 4.73 cm: 20 weeks, 2 days HC: 18.01 cm: 20 weeks, 3 days AC: 16.38 cm: 21 weeks, 3 days FL: 3.37 cm: 20 weeks, 4 days CI: 76% FL/BPD: 71% FL/HC: FL/AC: 21% HC/AC: 1.1 age by current US: 20 weeks, 3 days. ELEUTERIO by current US: 09/14/2022. Estimated weight: 391 grams, +/- 59 grams, 23 %. Age by LMP: 21 weeks, 3 days. ELEUTERIO by LMP: 09/07/2022. ANATOMY: Gender: Female Cranium: Normal lateral ventricles. Normal choroid plexus. Normal cerebellum. Normal cisterna magna. Normal face, nose and lips. Chest: Normal 4-chamber heart. Abdomen/Pelvis: Normal diaphragm. Normal stomach. Normal abdominal wall. Normal cord insertion. Normal 3 vessel cord. Normal kidneys. Normal bladder. Spine: Normal cervical spine. Normal thoracic spine. Normal lumbar spine. Normal sacrum. Extremities: Normal bilateral upper extremities. Normal bilateral lower extremities. IMPRESSION: Single live uterine gestation with mean gestational age of 20 weeks and 3 days. Electronically Signed: Howie Looney MD at 15:35 EST , STUDY: FIRST TRIMESTER OBSTETRICAL ULTRASOUND REASON FOR EXAM: Female, 31 years old. Cervical length measurement. LMP: 12/01/2021. TECHNIQUE: Transvaginal TECHNICAL QUALITY: Adequate. PRIOR ULTRASOUND: None. FINDINGS: Cervical length measures 5.8 cm. US/OB Anatomy Scan IMPRESSION: Cervical length measures 5.8 cm. Electronically Signed: Howie Looney MD at 15:36 EST ,
== END | disposition home or self-care (01) ==
LOC: OPUS 07:58
PROVIDERS: PCP Internal Medicine; Visit Provider Nurse Practitioner Women's Health
DX: Z34.90 Encounter for supervision of normal pregnancy, unspecified, unspecified trimester (principal)
CPT/HCPCS: 76805; 76817

== ENCOUNTER → 2022-06-10 | Outpatient (CLI) | payer OTHER, SELFPAY ==
[2022-06-10 08:15] LABS: Absolute Lymphocyte Count 1.68 X10^3/uL (0.83-4.51); Absolute Neutrophil Count 4.7 X10^3/uL (2.0-7.7); Basophil# 0.03 X10^3/uL; Basophil% 0.4 % (0-1); Eosinophil# 0.08 X10^3/uL; Eosinophils% 1.2 % (0-5); Hematocrit 33.4 % (37-47); Hemoglobin 10.7 g/dL (12.0-15.0); Lymphocyte # 1.68 X10^3/ul (0.83-4.51); Lymphocyte % 24.4 % (19-41); Mean Corpuscular Hgb 29.3 pg (27.0-32.0); Mean Corpuscular Volume 91.5 fL (81-99); Monocyte# 0.32 X10^3/uL; Monocyte% 4.7 % (0-10); NRBC Flagged by Analyzer 0 % (0-5); Neutrophil # 4.72 X10^3/uL (2.7-7.7); Neutrophil % 68.6 % (47-70); Platelet Count 233 K/mm3 (150-450); RBC Distribution Width CV 13.7 % (11.6-14.6); RBC Distribution Width SD 46.4 fl (35.1-43.9); Red Blood Count 3.65 M/mm3 (4.2-5.4); White Blood Count 6.9 K/mm3 (4.4-11.0)
[2022-06-10 08:35] LABS: Glucose Challenge Gest 1H 50g 130 mg/dL (70-140)
[2022-06-10 09:10] LABS: HIV - WCH Non-Reactive (Nonreactive); Syphilis Antibodies Non-reactive
== END | disposition home or self-care (01) ==
PROVIDERS: PCP Internal Medicine; Referring Provider Registered Nurse; Visit Provider Registered Nurse
DX: Z34.90 Encounter for supervision of normal pregnancy, unspecified, unspecified trimester (principal)
CPT/HCPCS: 36415; 82950; 85025; 86703; 86780

== ENCOUNTER 2022-07-30 21:15 | Outpatient (CLI) | payer OTHER, SELFPAY ==
[2022-07-30 21:29] VITALS: BMI 28.0
[2022-07-30 21:39] VITALS: PULSE 89; TEMP 36.8; O2SAT 98
[2022-07-30 21:40] VITALS: BP 119/75; PULSE 93; O2SAT 97
[2022-07-30 22:06] LABS: ROM Internal Control Test YES-OK TO RESULT pt. (Internal QC); ROM Patient Test Negative (Negative)
[2022-07-30 22:50] LABS: Bacteria 0 SEEN /hpf (None Seen); Mucous, Urine 0 SEEN /hpf (<or=2+); Red Blood Cells-Urine 0 SEEN /hpf (0-5); Squamous Epithelial Cells - UA 0 SEEN /hpf (5-10); White Blood Cells 0 SEEN /hpf (0-5)
[2022-07-30 22:54] LABS: Color, Urine Yellow (Yellow); Glucose, Dipstick Normal (Normal); Ketone-Dipstick Negative (Negative); Leukocyte Esterase-Dipstick Negative /ul (Negative); Nitrite-Dipstick Negative (Negative); Occult Blood-Urine Negative /ul (Negative); Protein-Dipstick Negative (Negative); Urine Bilirubin Dipstick Negative (Negative); Urine Clarity Clear (Clear); Urine Urobilinogen Normal (Normal)
[2022-07-30] MEDS: Lactated Ringers 1,000 ML 999 ML IV (23:29)
[2022-07-30] MEDS: Betamethasone/Betamethasone 30 MG/5 ML Vial 12 MG IM (23:29)
[2022-07-30 23:34] LABS: Fetal Fibronectin Negative
[2022-07-30 23:53] VITALS: TEMP 36.5
[2022-07-30 23:54] VITALS: BP 107/63; PULSE 67
[2022-07-31 01:20] LABS: Group B Strep DNA By PCR Negative (Negative); Internal Control PASS; Probe Check PASS; Specimen Processing Control PASS
--- NOTE | 2022-07-31 02:17 | OB.TRI.HP_ITS ---
HPI - General HPI Narrative ORION SHERIDAN, is a 32 F who presents at 34+3 with sudden LOF at 1930 along with mild contractions every 5 minutes. these are described as worse than typical yris rodriguez. active fetus, denies vb. uncomplicated course until this time, previous resulted in postdates . Maternal Data Information ELEUTERIO Calculator Estimated Delivery Date Method Current WG Current Estimate 09/07/22 Ultrasound #1 34w 4d Other Estimates 09/16/22 LMP (Certain) 33w 2d PFSH PFSH Medical History Diarrhea Fatigue GERD (gastroesophageal reflux disease) Hemorrhoids IBS (irritable bowel syndrome) mild leukocytopenia Seasonal allergies Home Medications prenat.vits,gustavo,ujz-bglp-wwjun 1 tab PO DAILY 11/15/20 [History Last Taken 11/14/20 09:00] Allergy/AdvReac Type Severity Reaction Status Date / Time No Known Allergies Allergy Verified 07/23/22 09:07 Family History Mother Kidney stones Carotid artery disease Cancer of kidney Hypertension High cholesterol Father Blood disorder too many platelets thrombocythemia Hypertension Arthritis RA Heart disease AFIB High cholesterol Grandmother Angina pectoris Arthritis Myocardial infarction Heart disease Multiple sclerosis Grandfather CVA (cerebral vascular accident) Surgical History History of colonoscopy Left ACL tear Ptosis [place] teeth extracted Social History household members: spouse number of children: 1 current occupational status: employed current occupation: [employer] history of recent travel: No sexually active: Yes Smoking Status: Never smoker alcohol intake: former substance use type: does not use diet: gluten free what type of physical activity do you participate in: yoga and other details: barre frequency: 1-2 times per week jordon/alevism: Bahai seatbelt use: always do you feel safe at home: Yes 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 Date Name GA/Weeks Outcome Route Bth Weight Infant Gen Labor Lgth Anesthesia Del Locatn Provider FOB 11/16/20 Tanner 40 live - full term 8lbs 2oz Male ep idural [employer] GP Delivery Date: 11/16/20 Last Updated by: Steph Randall Uterine atony; Pitocin, Methergine and Cytotec Visit Details Expected Delivery Route/Plan Labor Preferences- CB/BF classes: Declines labor support person: Dariusz labor intervention preferences: [] pain management options preferred: epidural cut cord/dad catch: [] : Yes PP control planned:considering IUD discussed possible routes of delivery and associated risks: special requests: [] Plans Covid status: vaccinated with 1 booster Flu vaccine:obtained Tdap vaccine: will o at btain Rhogam: NA LARC form signed: Yes Problem list reviewed and updated with the most current plan of care details and appropriate orders placed. Relevant counseling for the gestational age provided. Continue routine care and follow up unless otherwise noted in visit n otes/problem list details OB Flowsheet Initial Weight: Not Recorded Date -?-?-?-?-?-?-?-?-?-?--?-?- EGA Weight BP Urine Prot -?-?-?-?-?-?-?-?-?-?-?-?- Glucose FHR FuHt Pres Dilation -?-?-?-?-?-?-?-?-?-?-?-?- Effaced St Visit Note 02/17/22 -?-?-?-?-?-?-?-?-?-?-?-?- 11w 1d 160 lb 112/60 -?-?-?-?-?-?-?-?-?-?-?-?- 180 -?-?-?-?-?-?-?-?-?-?-?-?- SM- CRL NOT con s with LMP 03/19/22 -?-?-?-?-?-?-?-?-?-?-?-?- 15w 3d 160 lb 4 oz 112/64 Nega tive -?-?--?-?-?-?-?-?-?-?-?-?- Negative 156 -?-?-?-?-?-?-?-?-?-?-?-?- -No VB, lee ng. Still struggling with nausea but improving. 05/12/22 -?-?-?-?-?-?-?-?-?-?--?-?- 23w 1d 169 lb 105/66 Negative -?-?-?-?-?-?-?-?-?-?-?-?- Negative 158 23 -?-?-?-?-?-?-?-?-?-?-?-?- LC- no vb/lof/cr amping. normal anatomy. no concerns. 28 week labs ordered. 06/12/22 -?-?-?-?-?-?-?-?-?-?-?-?- 27w 4d 172 lb 2 oz 116/64 Nega tive -?-?-?-?-?-?-?-?-?-?-?-?- Negative 156 27 -?-?-?-?-?-?-?-?-?-?-?-?- LC- doing well n o lof/vb/ctx. good fm. mild anemia- will start additional FE supplement. passed [facility] signed. will get tdap next visit 06/27/22 -?-?-?-?-?-?-?-?-?-?-?-?- 29w 5d 171 lb 6 oz 111/68 Nega tive -?-?-?-?-?-?-?-?-?-?-?-?- Negative 145 28 -?-?-?-?-?-?-?-?-?-?-?-?- KW- +fm no lof/v b/ctx. Tdap given. no concerns KW- +fm no lof/vb/ctx. Tdap given. some round ligament pain otherwise no concerns. [facility] this weekend 07/10/22 -?-?-?-?-?-?-?-?-?-?--?-?- 31w 4d 174 lb 4 oz 115/74 Nega tive -?-?-?-?-?-?-?-?-?-?-?-?- Negative 140 30 -?-?-?-?-?-?-?-?-?-?-?-?- JV- no lof, vagi nal bleeding, or dec fm. no complaints today. 07/23/22 -?-?-?-?-?-?-?-?-?-?-?-?- 33w 3d 178 lb 119/68 Negative -?-?-?-?-?-?-?-?-?-?-?-?- Negative 140 33 -?-?-?-?-?-?-?-?-?-?-?-?- KW- +FM, no vb/l of/regular ctx. taking OTC Pepcid BID for heartburn. using support belt -doing well. ROS Constitutional Constitutional: Reports systems reviewed and no addt'l complaints, except as documented Eyes Eyes: Reports systems reviewed and no addt'l complaints, except as documented Physical Exam Const alert, oriented x3 and no apparent distress Resp normal respiratory effort, normal air movement, no retractions and no use of accessory muscles Cardio regular rate and regular rhythm GI soft to palpation and non-tender Inspection: Palpation: soft Rectal Exam: deferred no CVA tenderness and external exam normal External Female Exam: normal appearance of the urethra Speculum Exam - Vagina: Negative for vaginal laceration Bimanual Exam - Vag & Uterus: uterus non-tender and other gravid uterus, normal for gestational age OB / External & Speculum: Negative for herpetic lesions Manual OB Exam: estimated gestational size appropriate, presentation cephalic, dilated 1, effaced 20 and station -4 Uterus Palpation: Negative for uterus tender Amniotic Fluid: no amniotic fluid noted and ROM+plus negative - Extremity normal to inspection and full ROM Neuro Motor Exam: strength 5/5 throughout and muscle tone normal throughout Deep Tendon Reflexes: Rt Patellar (L4): 2+ and Lt Patellar (L4): 2+ Psych mental status grossly normal NST FHR Rate Baby A Baseline: 130 Variability:: Moderate Accelerations:: 15 x 15 Decelerations:: None NST Reactive:: Yes FHR Category:: Category I Uterine Activity:: irregular, spacing Assessment & Plan (1) contractions: COMMENT: negative ffn GBS negative UCx negative genital culture pending. Celestone x2 to be obtained. First dose given in WP . Return to WP at 10pm on 07/31 for second dose consulted with Dr. Luz, with unchanged cervical exam with lessing ctx. pt sent home to f/u in office by thursday or sooner if worsening symptoms. (2) Supervision of normal : COMMENT: [id number] ELEUTERIO 09/16/2022. PC: Tanner. : Dariusz (3) : QUALIFIERS: Weeks of gestation: 33 weeks Qualified Code(s): Z3A.33 - 33 weeks gestation of COMMENT: discussed genetic/carrier and declines, nl anatomy Charges/Coding Visit Charges Office Visits / Consults: 11333 OV L3 Est Procedures Urinary/Genital 52xxx-59xxx: 38053-52 non-stress test Interp Multi Select Codes Urinary/Genital Urinary/Genital CPT Codes: 78631-45 non-stress test Interp
== END 2022-07-31 02:22 | disposition home or self-care (01) ==
LOC: WPOUT 21:22 → WP 21:22
PROVIDERS: PCP Internal Medicine; Referring Provider Registered Nurse; Visit Provider Registered Nurse
DX: O47.03 False labor before 37 completed weeks of gestation, third trimester (principal); Z3A.33 33 weeks gestation of pregnancy
CPT/HCPCS: 96360; 96372; 59050; 81001; 82731; 84112; 87081; 87653; 99221; J7120; G0378; J0702

== ENCOUNTER 2022-07-31 20:55 | Outpatient (CLI) | payer OTHER, SELFPAY ==
--- NOTE | 2022-07-31 21:06 | OB.TRI.PN ---
Progress Notes Date of Service: 07/31/22 Progress Note: second dose celestone for prematurity
[2022-07-31 21:07] VITALS: BMI 28.3
[2022-07-31] MEDS: Betamethasone/Betamethasone 30 MG/5 ML Vial 12 MG IM (21:27)
== END 2022-07-31 21:35 | disposition home or self-care (01) ==
LOC: WPPAT 21:04 → WP 21:05
PROVIDERS: PCP Internal Medicine; Visit Provider Obstetrics & Gynecology
DX: O60.00 Preterm labor without delivery, unspecified trimester (principal)
CPT/HCPCS: 96372; J0702

== ENCOUNTER 2022-08-05 11:35 | Outpatient (CLI) | payer OTHER, SELFPAY ==
[2022-08-05 11:55] VITALS: BP 119/68; PULSE 80; O2SAT 98
[2022-08-05 12:07] VITALS: BMI 28.0
--- NOTE | 2022-08-05 12:09 | US_ITS ---
STUDY: SECOND AND THIRD TRIMESTER OBSTETRICAL ULTRASOUND - LIMITED REASON FOR EXAM: Female, 32 years old. growth and fluid level PRIOR ULTRASOUND: 04.30.22. TECHNIQUE: Transabdominal TECHNICAL QUALITY: Adequate. FINDINGS: There is a single intrauterine fetus. The fetus is in a cephalic presentation. There is demonstrated cardiac activity with a heart rate of 155 bpm. There is a normal amniotic fluid volume. The largest amniotic fluid pocket measures 5.2 cm. The amniotic fluid index (LUPE) is 11.98 cm. The placenta is anterior in location and is not low lying. There are Grade 1 placental changes. The cervix measures cm in length: 3.7. BIOMETRY: BPD: 86 mm: 34 weeks, 6 days HC: 313 mm: 35 weeks, 0 days AC: 325 mm: 36 weeks, 3 days FL: 67 mm: 34 weeks, 2 days CI: NA FL/AC: 20.5 FL/BPD: 77 HC/AC: 0.96 age by current US: 34 weeks, 6 days. ELEUTERIO by current US: 6.28.23. Estimated weight: 2743 grams, +/- 412 grams, 60 %. Age by LMP: 35 weeks, 2 days. ELEUTERIO by LMP: 6.25.23. US/OB Limited With Biometrics IMPRESSION: There is a single live intrauterine with a heart rate of 155 bpm. Electronically Signed: Andre Cuba MD at 15:01 EDT ,
--- NOTE | 2022-08-08 08:27 | OB.TRI.PN_ITS ---
Progress Notes Date of Service: 08/05/22 Progress Note: Patient presents for triage evaluation secondary to nonreactive NST in office FHT: 135 Moderate variability reactive no decelerations category I tracing [place]: Irregular Contractions Assessment and plan: Reactive NST, growth US and LUPE normal, reassuring maternal and status patient discharged to home to follow-up at next appointment. See problem list details for additional plan information. Charges/Coding Multi Select Codes Urinary/Genital Urinary/Genital CPT Codes: 03474-14 non-stress test Interp Assessment & Plan (1) Fundal height low for dates in third trimester: COMMENT: growth US-60% normal LUPE on 08/05 (2) contractions: COMMENT: negative ffn GBS negative UCx negative genital culture pending. Celestone x2 to be obtained. First dose given in WP . Return to WP at 10pm on 07/31 for second dose consulted with Dr. Luz, with unchanged cervical exam with lessing ctx. pt sent home to f/u in office by thursday or sooner if worsening symptoms. (3) Supervision of normal : COMMENT: [id number] ELEUTERIO 09/16/2022. PC: Tanner. : Dariusz (4) : QUALIFIERS: Weeks of gestation: 35 weeks Qualified Code(s): Z3A.35 - 35 weeks gestation of COMMENT: GBS neg, discussed genetic/carrier and declines, nl anatomy
== END 2022-08-05 15:25 | disposition home or self-care (01) ==
LOC: WPOUT 11:48 → WP 11:48
PROVIDERS: PCP Internal Medicine; Referring Provider Advanced Practice Midwife; Visit Provider Advanced Practice Midwife
DX: O32.8XX0 Maternal care for other malpresentation of fetus, not applicable or unspecified (principal); Z3A.35 35 weeks gestation of pregnancy
CPT/HCPCS: 59025; 59050; 76816; 99221; G0378

== ENCOUNTER → 2022-08-13 | Outpatient (CLI) | payer OTHER, SELFPAY | END | disposition home or self-care (01) | PROVIDERS: PCP Internal Medicine; Visit Provider Physician Assistant | DX: R07.0 Pain in throat (principal) | CPT/HCPCS: 87070 ==

== ENCOUNTER 2022-08-18 16:40 | Outpatient (CLI) | payer OTHER, SELFPAY ==
[2022-08-18 16:56] VITALS: BMI 28.7
[2022-08-18 17:26] LABS: ROM Internal Control Test YES-OK TO RESULT pt. (Internal QC); ROM Patient Test Negative (Negative); Record Kit Lot#, ROM+ K1374
[2022-08-18 17:40] VITALS: BP 121/74; PULSE 81
--- NOTE | 2022-08-18 17:40 | OB.TRI.HP_ITS ---
HPI - General HPI Narrative ORION SHERIDAN, is a 32 F who presents at 37+1 for leaking of fluid. active fetus, denies vb/ctx. GBS negative. Maternal Data Information ELEUTERIO Calculator Estimated Delivery Date Method Current WG Current Estimate 09/07/22 Ultrasound #1 37w 1d Other Estimates 09/16/22 LMP (Certain) 35w 6d PFSH PFSH Medical History Diarrhea Fatigue GERD (gastroesophageal reflux disease) Hemorrhoids IBS (irritable bowel syndrome) mild leukocytopenia Seasonal allergies Home Medications prenat.vits,gustavo,upg-rmol-lgtoz 1 tab PO DAILY 11/15/20 [History Last Taken 11/14/20 09:00] acetaminophen 325 mg tablet (Tylenol) 325 mg PO ONCE PRN 08/15/22 [History Last Taken Unknown] Allergy/AdvReac Type Severity Reaction Status Date / Time No Known Allergies Allergy Verified 08/15/22 11:37 Family History Mother Kidney stones Carotid artery disease Cancer of kidney Hypertension High cholesterol Father Blood disorder too many platelets thrombocythemia Hypertension Arthritis RA Heart disease AFIB High cholesterol Grandmother Angina pectoris Arthritis Myocardial infarction Heart disease Multiple sclerosis Grandfather CVA (cerebral vascular accident) Surgical History History of colonoscopy Left ACL tear Ptosis [place] teeth extracted Social History household members: spouse number of children: 1 current occupational status: employed current occupation: [employer] history of recent travel: No sexually active: Yes Smoking Status: Never smoker alcohol intake: former substance use type: does not use diet: gluten free what type of physical activity do you participate in: yoga and other details: barre frequency: 1-2 times per week jordon/oriental orthodox: Restoration seatbelt use: always do you feel safe at home: Yes 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 Date Name GA/Weeks Outcome Route Bth Weight Infant Gen Labor Lgth Anesthesia Del Locatn Provider FOB 11/16/20 Tanner 40 live - full term 8lbs 2oz Male ep idural [employer] [facility] GP Delivery Date: 11/16/20 Last Updated by: Steph Randall Uterine atony; Pitocin, Methergine and Cytotec Visit Details Expected Delivery Route/Plan Labor Preferences- CB/BF classes: Declines labor support person: Dariusz labor intervention preferences: [] pain management options preferred: epidural cut cord/dad catch: [] : Yes PP control planned:considering IUD discussed possible routes of delivery and associated risks: special requests: [] Plans Covid status: vaccinated with 1 booster Flu vaccine:obtained Tdap vaccine: will o at btain Rhogam: NA LARC form signed: Yes Problem list reviewed and updated with the most current plan of care details and appropriate orders placed. Relevant counseling for the gestational age provided. Continue routine care and follow up unless otherwise noted in visit notes/problem list details OB Flowsheet Initial Weight: Not Recorded Date -?-?-?-?-?-?-?-?-?-?-?-?- EGA Weight BP Urine Prot -?-?-?-?-?-?-?-?-?-?-?-?- Glucose FHR FuHt Pres Dilation -?-?-?-?-?-?-?-?-?-?-?-?- Effaced St Visit Note 02/17/22 -?-?-?-?-?-?-?-?-?-?-?-?- 11w 1d 160 lb 112/60 -?-?-?-?-?-?-?-?-?-?-?-?- 180 -?-?-?-?-?-?-?-?-?-?-?-?- SM- CRL NOT con s with LMP 03/19/22 -?-?-?-?-?-?-?-?-?-?-?-?- 15w 3d 160 lb 4 oz 112/64 Nega tive -?-?-?-?-?-?-?-?-?-?-?-?- Negative 156 -?-?-?-?-?-?-?-?-?-?-?-?- MH-No VB, lee ng. Still struggling with nausea but improving. 05/12/22 -?-?-?-?-?-?-?-?-?-?-?-?- 23w 1d 169 lb 105/66 Negative -?-?-?-?-?-?-?-?-?-?-?-?- Negative 158 23 -?-?-?-?-?-?-?-?-?-?-?-?- LC- no vb/lof/cr amping. normal anatomy. no concerns. 28 week labs ordered. 06/12/22 -?-?-?-?-?-?-?-?-?-?-?-?- 27w 4d 172 lb 2 oz 116/64 Nega tive -?-?-?-?-?-?-?-?-?-?-?-?- Negative 156 27 -?-?-?-?-?-?-?-?-?-?-?-?- LC- doing well n o lof/vb/ctx. good fm. mild anemia- will start additional FE supplement. passed GCT.[facility] signed. will get tdap next visit 06/27/22 -?-?-?-?-?-?-?-?-?-?-?-?- 29w 5d 171 lb 6 oz 111/68 Nega tive -?-?-?-?-?-?-?-?-?-?-?-?- Negative 145 28 -?-?-?-?-?-?-?-?-?-?-?-?- KW- +fm no lof/v b/ctx. Tdap given. no concerns KW- +fm no lof/vb/ctx. Tdap given. some round ligament pain otherwise no concerns. [facility] this weekend 07/10/22 -?-?-?-?-?-?-?-?-?-?-?-?- 31w 4d 174 lb 4 oz 115/74 Nega tive -?-?-?-?-?-?-?-?-?-?-?-?- Negative 140 30 -?-?-?-?-?-?-?-?-?-?-?-?- JV- no lof, vagi nal bleeding, or dec fm. no complaints today. 07/23/22 -?-?-?-?-?-?-?-?-?-?-?-?- 33w 3d 178 lb 119/68 Negative -?-?-?-?-?-?-?-?-?-?-?-?- Negative 140 33 -?-?-?-?-?-?-?-?-?-?-?-?- KW- +FM, no vb/l of/regular ctx. taking OTC Pepcid BID for heartburn. using support belt -doing well. 08/05/22 -?-?-?-?-?-?-?-?-?-?-?-?- 35w 2d 179 lb 4 oz 104/70 Nega tive -?-?-?-?-?-?-?-?-?-?-?-?- Negative 140 33 0 -?-?-?-?-?-?-?-?-?-?-?-?- KW-+FM. No lof/v b/ some ctx. requesting VE. In WP last week for R/O labor. growth US ordered for S<D. NST today KW-+FM. No lof/vb/ some ctx. requesting VE. In WP last week for R/O labor. growth US ordered for S<D. NST today-nonreactive. to for extended monitoring 08/08/22 -?-?-?-?-?-?-?-?-?-?-?-?- 35w 5d 178 lb 6 oz 124/79 Nega tive -?-?-?-?-?-?-?-?-?-?-?-?- Negative 140 36 Cephalic 1 -?-?-?-?-?-?-?-?-?-?-?-?- 50 -3 JV- growth scan 60th% and fundal height normal today. pt requests pelvic exam. 08/15/22 -?-?-?-?-?-?-?-?-?-?-?-?- 36w 5d 179 lb 6 oz 126/78 Nega tive -?-?-?-?-?-?-?-?-?-?-?-?- Negative 145 36 Cephalic 2 -?-?-?-?-?-?-?-?-?-?-?-?- 60 -2 KW- +FM. N o vb/lof/reg contractions. GBS on L&D neg. no concerns. discussed membrane sweep after 38 weeks NST FHR Rate Baby A Baseline: 130-145 Variability:: Moderate Accelerations:: 15 x 15 Decelerations:: None NST Reactive:: Yes FHR Category:: Category I Uterine Activity:: irregular Assessment & Plan (1) Vaginal discharge during : COMMENT: negative ROM plus, d/c home PLAN: Patient presents for triage evaluation secondary to leaking of fluid. ROM plus negative. FHT: Moderate variability reactive no decelerations category I tracing [place]: Contractions Assessment and plan: Reactive NST, reassuring maternal and status patient discharged to home to follow-up in office. labor precautions provided. See problem list details for additional plan information. Charges/Coding Procedures Urinary/Genital 52xxx-59xxx: 80119-54 non-stress test Interp
--- NOTE | 2022-08-18 17:40 | OB.TRI.NOTE ---
HPI - General HPI Narrative ORION SHERIDAN, is a 32 F who presents at 37+1 for leaking of fluid. active fetus, denies vb/ctx. GBS negative. Maternal Data Information ELEUTERIO Calculator Estimated Delivery Date Method Current WG Current Estimate 09/07/22 Ultrasound #1 37w 1d Other Estimates 09/16/22 LMP (Certain) 35w 6d PFSH PFSH Medical History Diarrhea Fatigue GERD (gastroesophageal reflux disease) Hemorrhoids IBS (irritable bowel syndrome) mild leukocytopenia Seasonal allergies Home Medications prenat.vits,gustavo,fof-pwrl-cimza 1 tab PO DAILY 11/15/20 [History Last Taken 11/14/20 09:00] acetaminophen 325 mg tablet (Tylenol) 325 mg PO ONCE PRN 08/15/22 [History Last Taken Unknown] Allergy/AdvReac Type Severity Reaction Status Date / Time No Known Allergies Allergy Verified 08/15/22 11:37 Family History Mother Kidney stones Carotid artery disease Cancer of kidney Hypertension High cholesterol Father Blood disorder too many platelets thrombocythemia Hypertension Arthritis RA Heart disease AFIB High cholesterol Grandmother Angina pectoris Arthritis Myocardial infarction Heart disease Multiple sclerosis Grandfather CVA (cerebral vascular accident) Surgical History History of colonoscopy Left ACL tear Ptosis [place] teeth extracted Social History household members: spouse number of children: 1 current occupational status: employed current occupation: [employer] history of recent travel: No sexually active: Yes Smoking Status: Never smoker alcohol intake: former substance use type: does not use diet: gluten free what type of physical activity do you participate in: yoga and other details: barre frequency: 1-2 times per week jordon/congregation: Gnosticism seatbelt use: always do you feel safe at home: Yes 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 Date Name GA/Weeks Outcome Route Bth Weight Infant Gen Labor Lgth Anesthesia Del Locatn Provider FOB 11/16/20 Tanner 40 live - full term 8lbs 2oz Male epidural [employer] GP Delivery Date: 11/16/20 Last Updated by: Steph Randall Uterine atony; Pitocin, Methergine and Cytotec Visit Details Expected Delivery Route/Plan Labor Preferences- CB/BF classes: Declines labor support person: Dariusz labor intervention preferences: [] pain management options preferred: epidural cut cord/dad catch: [] : Yes PP control planned:considering IUD discussed possible routes of delivery and associated risks: special requests: [] Plans Covid status: vaccinated with 1 booster Flu vaccine:obtained Tdap vaccine: will o at btain Rhogam: NA LARC form signed: Yes Problem list reviewed and updated with the most current plan of care details and appropriate orders placed. Relevant counseling for the gestational age provided. Continue routine care and follow up unless otherwise noted in visit notes/problem list details OB Flowsheet Initial Weight: Not Recorded Date <del>?</del> EGA Weight BP Urine Prot <del>?</del> Glucose FHR FuHt Pres Dilation <del>?</del> Effaced St Visit Note 02/17/22 <del>?</del> 11w 1d 160 lb 112/60 <del>?</del> 180 <del>?</del> SM- CRL NOT cons with LMP 03/19/22 <del>?</del> 15w 3d 160 lb 4 oz 112/64 Negative <del>?</del> Negative 156 <del>?</del> MH-No VB, cramping. Still struggling with nausea but improving. 05/12/22 <del>?</del> 23w 1d 169 lb 105/66 Negative <del>?</del> Negative 158 23 <del>?</del> LC- no vb/lof/cramping. normal anatomy. no concerns. 28 week labs ordered. 06/12/22 <del>?</del> 27w 4d 172 lb 2 oz 116/64 Negative <del>?</del> Negative 156 27 <del>?</del> LC- doing well no lof/vb/ctx. good fm. mild anemia- will start additional FE supplement. passed GCT.[facility] signed. will get tdap next visit 06/27/22 <del>?</del> 29w 5d 171 lb 6 oz 111/68 Negative <del>?</del> Negative 145 28 <del>?</del> KW- +fm no lof/vb/ctx. Tdap given. no concerns KW- +fm no lof/vb/ctx. Tdap given. some round ligament pain otherwise no concerns. [facility] this weekend 07/10/22 <del>?</del> 31w 4d 174 lb 4 oz 115/74 Negative <del>?</del> Negative 140 30 <del>?</del> JV- no lof, vaginal bleeding, or dec fm. no complaints today. 07/23/22 <del>?</del> 33w 3d 178 lb 119/68 Negative <del>?</del> Negative 140 33 <del>?</del> KW- +FM, no vb/lof/regular ctx. taking OTC Pepcid BID for heartburn. using support belt -doing well. 08/05/22 <del>?</del> 35w 2d 179 lb 4 oz 104/70 Negative <del>?</del> Negative 140 33 0 <del>?</del> KW-+FM. No lof/vb/ some ctx. requesting VE. In WP last week for R/O labor. growth US ordered for S<D. NST today KW-+FM. No lof/vb/ some ctx. requesting VE. In WP last week for R/O labor. growth US ordered for S<D. NST today-nonreactive. to for extended monitoring 08/08/22 <del>?</del> 35w 5d 178 lb 6 oz 124/79 Negative <del>?</del> Negative 140 36 Cephalic 1 <del>?</del> 50 -3 JV- growth scan 60th% and fundal height normal today. pt requests pelvic exam. 08/15/22 <del>?</del> 36w 5d 179 lb 6 oz 126/78 Negative <del>?</del> Negative 145 36 Cephalic 2 <del>?</del> 60 -2 KW- +FM. No vb/lof/reg contractions. GBS on L&D neg. no concerns. discussed membrane sweep after 38 weeks NST FHR Rate Baby A Baseline: 130-145 Variability:: Moderate Accelerations:: 15 x 15 Decelerations:: None NST Reactive:: Yes FHR Category:: Category I Uterine Activity:: irregular Assessment & Plan (1) Vaginal discharge during : COMMENT: negative ROM plus, d/c home PLAN: Patient presents for triage evaluation secondary to leaking of fluid. ROM plus negative. FHT: Moderate variability reactive no decelerations category I tracing [place]: Contractions Assessment and plan: Reactive NST, reassuring maternal and status patient discharged to home to follow-up in office. labor precautions provided. See problem list details for additional plan information. Charges/Coding Procedures Urinary/Genital 52xxx-59xxx: 03628-38 non-stress test Interp
[2022-08-18 17:41] VITALS: TEMP 37
== END 2022-08-18 17:45 | disposition home or self-care (01) ==
LOC: WPOUT 16:46 → WP 16:46
PROVIDERS: PCP Internal Medicine; Referring Provider Registered Nurse; Visit Provider Registered Nurse
DX: O99.891 Other specified diseases and conditions complicating pregnancy (principal); Z3A.37 37 weeks gestation of pregnancy; N89.8 Other specified noninflammatory disorders of vagina
CPT/HCPCS: 59025; 59050; 84112; 99221; G0378

== ENCOUNTER 2022-09-04 19:05 | Inpatient (IN) | payer OTHER, SELFPAY ==
[2022-09-04] VITALS (29 sets, daily range): BP systolic 106–140; BP diastolic 60–86; PULSE 65–88; TEMP 36–37.1; O2SAT 97–100; BMI 29.0
[2022-09-04] MEDS: Lactated Ringers 1,000 ML 50 ML IV (20:00)
[2022-09-04] MEDS: LACTATED RINGERS 500 ML 999 ML IV (20:10)
[2022-09-04 20:21] LABS: Absolute Neutrophil Count 8.2 X10^3/uL (2.0-7.7); Basophil# 0.03 X10^3/uL; Basophil% 0.2 % (0-1); Eosinophil# 0.05 X10^3/uL; Eosinophils% 0.4 % (0-5); Hemoglobin 11.4 g/dL (12.0-15.0); Lymphocyte % 25.5 % (19-41); Mean Corp Hgb Conc 32.6 g/dL (32-36); Mean Corpuscular Hgb 28.4 pg (27.0-32.0); Mean Corpuscular Volume 87.3 fL (81-99); Mean Platelet Vol. 11.8 fl (6.2-12.0); Monocyte# 0.79 X10^3/uL; Monocyte% 6.5 % (0-10); NRBC Flagged by Analyzer 0 % (0-5); Neutrophil # 8.15 X10^3/uL (2.7-7.7); Platelet Count 223 K/mm3 (150-450); RBC Distribution Width CV 14.1 % (11.6-14.6); RBC Distribution Width SD 44.8 fl (35.1-43.9); Red Blood Count 4.01 M/mm3 (4.2-5.4); White Blood Count 12.2 K/mm3 (4.4-11.0)
[2022-09-04 20:54] LABS: Syphilis Antibodies Non-reactive
[2022-09-04] MEDS: fentaNYL-bupivacaine (epidural) 100 ML BAG EPIDURAL (21:21)
[2022-09-04] MEDS: Ondansetron 4 MG/2 ML Vial IV (23:37)
[2022-09-04] MEDS: Lactated Ringers 1,000 ML 200 ML IV (23:37)
[2022-09-05] VITALS (42 sets, daily range): BP systolic 107–137; BP diastolic 60–80; PULSE 65–101; RESP 15–18; TEMP 36.5–36.9; O2SAT 81–100
[2022-09-05] MEDS: Oxytocin 10 UNITS/ML Vial IM (01:42)
[2022-09-05] MEDS: Oxytocin 15 Units/NS 250ml 15 UNITS/250 ML IV.SOLN 83 UNITS IV (01:47)
--- NOTE | 2022-09-05 02:00 | HP.PCM.OB_ITS ---
HPI - General General Date of Admission: 09/04/22 HPI Narrative ORION SHERIDAN, is a 32 F who presents IAL with bloody show regular ctx no lof admits good fm Maternal Data Information ELEUTERIO Calculator Estimated Delivery Date Method Current WG Current Estimate 09/07/22 Ultrasound #1 39w 5d Other Estimates 09/16/22 LMP (Certain) 38w 3d PFSH PFSH Medical History (Updated 09/05/22 @ 02:[address] Elizabeth Gilman MD) Diarrhea Fatigue GERD (gastroesophageal reflux disease) Hemorrhoids IBS (irritable bowel syndrome) mild leukocytopenia Placental abnormality Seasonal allergies Home Medications prenat.vits,gustavo,[id number] 1 tab PO DAILY 11/15/20 [History Last Taken 09/04/22 10:00] famotidine 20 mg tablet (Pepcid) 20 mg PO DAILY see provider 09/04/22 [History Last Taken 09/03/22 08:00] Allergy/AdvReac Type Severity Reaction Status Date / Time No Known Allergies Allergy Verified 09/04/22 19:17 Family History Mother Kidney stones Carotid artery disease Cancer of kidney Hypertension High cholesterol Father Blood disorder too many platelets thrombocythemia Hypertension Arthritis RA Heart disease AFIB High cholesterol Grandmother Angina pectoris Arthritis Myocardial infarction Heart disease Multiple sclerosis Grandfather CVA (cerebral vascular accident) Surgical History History of colonoscopy Left ACL tear Ptosis Flippin teeth extracted Social History household members: spouse number of children: 1 current occupational status: employed current occupation: [employer] history of recent travel: No sexually active: Yes Smoking Status: Never smoker alcohol intake: former substance use type: does not use diet: gluten free what type of physical activity do you participate in: yoga and other details: barre frequency: 1-2 times per week jordon/advent: [employer] seatbelt use: always do you feel safe at home: Yes 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 Date Name GA/Weeks Outcome Route Bth Weight Infant Gen Labor Lgth Anesthesia Del Locatn Provider FOB 11/16/20 Tanner 40 live - full term 8lbs 2oz Male ep idural [employer] GP Delivery Date: 11/16/20 Last Updated by: Steph Randall Uterine atony; Pitocin, Methergine and Cytotec Visit Details Expected Delivery Route/Plan Labor Preferences- CB/BF classes: Declines labor support person: Dariusz labor intervention preferences: [] pain management options preferred: epidural cut cord/dad catch: [] : Yes PP control planned:considering IUD discussed possible routes of delivery and associated risks: special requests: [] Plans Covid status: vaccinated with 1 booster Flu vaccine:obtained [facility] Rhogam: NA LARC form signed: Yes Problem list reviewed and updated with the most current plan of care details and appropriate orders placed. Relevant counseling for the gestational age provided. Continue routine care and follow up unless otherwise noted in visit notes/problem list details OB Flowsheet Initial Weight: Not Recorded Date -?-?-?-?-?-?-?-?-?-?-?-?- EGA Weight BP Urine Prot -?-?-?-?-?-?-?-?-?-?-?-?- Glucose FHR FuHt Pres Dilation -?-?-?-?-?-?-?-?-?-?-?-?- Effaced St Visit Note 02/17/22 -?-?-?-?-?-?-?-?-?-?-?-?- 11w 1d 160 lb 112/60 -?-?-?-?-?-?-?--?-?-?-?-?- 180 -?-?-?-?-?-?-?-?-?-?-?-?- SM- CRL NOT con s with LMP 03/19/22 -?-?-?-?-?-?-?-?-?-?-?-?- 15w 3d 160 lb 4 oz 112/64 Nega tive -?-?-?-?-?-?-?-?-?-?-?-?- Negative 156 -?-?-?-?-?-?-?-?-?-?-?-?- MH-No VB, crakeith ng. Still struggling with nausea but improving. 05/12/22 -?-?-?-?-?-?-?-?-?-?-?-?- 23w 1d 169 lb 105/66 Negative -?-?-?-?-?-?-?-?-?-?-?-?- Negative 158 23 -?-?-?-?-?-?-?-?-?-?-?-?- LC- no vb/lof/cr amping. normal anatomy. no concerns. 28 week labs ordered. 06/12/22 -?-?-?-?-?-?-?-?-?-?-?-?- 27w 4d 172 lb 2 oz 116/64 Nega tive -?-?-?-?-?-?-?-?-?-?-?-?- Negative 156 27 -?-?-?-?-?-?-?-?-?-?-?-?- LC- doing well n o lof/vb/ctx. good fm. mild anemia- will start additional FE supplement. passed [facility] signed. will get tdap next visit 06/27/22 -?-?-?-?-?-?-?-?-?-?-?-?- 29w 5d 171 lb 6 oz 111/68 Nega tive -?-?-?-?-?-?-?-?-?-?-?-?- Negative 145 28 -?-?-?-?-?-?-?-?-?-?-?-?- KW- +fm no lof/v b/ctx. Tdap given. no concerns KW- +fm no lof/vb/ctx. Tdap given. some round ligament pain otherwise no concerns[facility] 07/10/22 -?-?-?-?-?-?-?-?-?-?-?-?- 31w 4d 174 lb 4 oz 115/74 Nega tive -?-?-?-?-?-?-?-?-?-?-?-?- Negative 140 30 -?-?-?-?-?-?-?-?-?-?-?-?- JV- no lof, vagi nal bleeding, or dec fm. no complaints today. 07/23/22 -?-?-?-?-?-?-?-?-?-?-?-?- 33w 3d 178 lb 119/68 Negative -?-?-?-?-?-?-?-?-?-?-?-?- Negative 140 33 -?-?-?-?-?-?-?-?-?-?-?-?- KW- +FM, no vb/l of/regular ctx. taking OTC Pepcid BID for heartburn. using support belt -doing well. 08/05/22 -?--?-?-?-?-?-?-?-?-?-?-?- 35w 2d 179 lb 4 oz 104/70 Nega tive -?-?-?-?-?-?-?-?-?-?-?-?- Negative 140 33 0 -?-?-?-?-?-?-?-?-?-?-?-?- KW-+FM. No lof/v b/ some ctx. requesting VE. In WP last week for R/O labor. growth US ordered for S<D. NST today KW-+FM. No lof/vb/ some ctx. requesting VE. In WP last week for R/O labor. growth US ordered for S<D. NST today-nonreactive. to for extended monitoring 08/08/22 -?-?-?-?-?-?-?-?-?-?-?-?- 35w 5d 178 lb 6 oz 124/79 Nega tive -?-?-?-?-?-?-?-?-?-?-?-?- Negative 140 36 Cephalic 1 -?-?-?-?-?-?-?-?-?-?-?-?- 50 -3 JV- growth scan 60th% and fundal height normal today. pt requests pelvic exam. 08/15/22 -?-?-?-?-?-?-?--?-?-?-?-?- 36w 5d 179 lb 6 oz 126/78 Nega tive -?-?-?-?-?-?-?-?-?-?-?-?- Negative 145 36 Cephalic 2 -?-?-?-?-?-?-?-?-?-?-?-?- 60 -2 KW- +FM. N o vb/lof/reg contractions. GBS on L&D neg. no concerns. discussed membrane sweep after 38 weeks 08/22/22 -?-?-?-?-?-?-?-?-?-?-?-?- 37w 5d 184 lb 9.6 oz 122/76 Tr carrie -?-?-?-?-?-?-?-?-?-?-?-?- Negative 162 37 Cephalic 2 -?-?-?-?-?-?-?-?-?-?-?-?- 60 -2 JV- no lof , vaginal bleeding, or dec fm. 08/28/22 -?-?-?-?-?-?-?-?-?-?-?-?- 38w 4d 184 lb 4 oz 113/73 Trac e -?-?-?-?-?-?-?-?-?-?-?-?- Negative 155 38 Cephalic 2 -?-?-?-?-?-?-?-?-?-?-?-?- 60 -2 JV- no lof , vaginal bleeding, or dec fm. no complaints. labor precautions discussed. 09/02/22 -?-?-?-?-?-?-?-?-?-?-?-?- 39w 2d 186 lb 2 oz 118/72 Nega tive -?-?--?-?-?-?-?-?-?-?-?-?- Negative 145 39 Cephalic 3 -?-?-?-?-?-?-?-?-?-?-?-?- 60 -1 -work fo r mucousy bloody discharge. No CTX. No leaking of clear fluid. Dec Fm: NST 09/04/22 -?-?-?-?-?-?-?-?-?-?-?-?- 39w 4d 185 lb 4 oz 119/80 -?-?-?-?-?-?-?-?-?-?-?-?- 140 39 -?-?-?-?-?-?-?-?-?-?-?-?- SM- no vb lof go od fm no regular ctx membranes swept 09/04/22 -?-?-?-?-?-?-?-?-?-?-?-?- 39w 4d 185 lb 120/67 120/67 130/75 110/60 129/85 140/86 127/79 121/76 123/81 121/76 120/75 125/79 125/81 108/66 106/65 120/76 111/73 121/65 112/69 -?-?-?-?-?-?-?-?-?-?-?-?- -?-?-?-?-?-?-?-?-?-?-?-?- NST FHR Rate Baby A Baseline: 140 Variability:: Moderate Accelerations:: 15 x 15 Decelerations:: None NST Reactive:: Yes FHR Category:: Category I Uterine Activity:: q3-5 ROS Constitutional Constitutional: Reports systems reviewed and no addt'l complaints, except as documented ENT HEENT: Reports systems reviewed and no addt'l complaints, except as documented Cardiovascular Cardiovascular: Reports systems reviewed and no addt'l complaints, except as documented Respiratory/Chest Respiratory/Chest: Reports systems reviewed and no addt'l complaints, except as documented Gastrointestinal Gastrointestinal: Reports systems reviewed and no addt'l complaints, except as documented and nausea; Denies abdominal pain Genitourinary Genitourinary: Reports systems reviewed and no addt'l complaints, except as documented, contractions Details: present and frequency (regular ) and movement Details: present Musculoskeletal Musculoskeletal: Reports systems reviewed and no addt'l complaints, except as documented Integumentary Integumentary: Reports as per HPI Neurologic Neurologic: Reports systems reviewed and no addt'l complaints, except as documented Endocrine Endocrinology: Reports systems reviewed and no addt'l complaints, except as documented Vital Signs Vital Signs Vital Signs: 09/04/22 18:27 09/04/22 18:27 09/04/22 18:28 Temperature Temperature Source Pulse Rate 84 82 Blood Pressure 120/67 BP Systolic 120 BP Diastolic 67 Pulse Ox 09/04/22 18:28 09/04/22 18:29 09/04/22 18:29 Temperature Temperature Source Temporal Pulse Rate Blood Pressure 120/67 BP Systolic 120 BP Diastolic 67 Pulse Ox 98 09/04/22 18:29 09/04/22 18:29 09/04/22 18:29 Temperature 98.8 F Temperature Source Pulse Rate 82 Blood Pressure BP Systolic BP Diastolic Pulse Ox 98 09/04/22 19:22 09/04/22 19:22 09/04/22 19:22 Temperature Temperature Source Pulse Rate 86 86 Blood Pressure 130/75 H BP Systolic 130 BP Diastolic 75 Pulse Ox 09/04/22 19:22 09/04/22 19:23 09/04/22 19:23 Temperature Temperature Source Temporal Pulse Rate Blood Pressure BP Systolic BP Diastolic Pulse Ox 97 97 09/04/22 19:23 09/04/22 20:56 09/04/22 20:56 Temperature 98.6 F Temperature Source Pulse Rate 69 Blood Pressure 110/60 BP Systolic 110 BP Diastolic 60 Pulse Ox 09/04/22 20:57 09/04/22 20:58 09/04/22 20:58 Temperature Temperature Source Temporal Pulse Rate 73 Blood Pressure BP Systolic BP Diastolic Pulse Ox 98 09/04/22 20:57 09/04/22 21:04 09/04/22 21:04 Temperature 97.7 F L Temperature Source Pulse Rate 85 Blood Pressure BP Systolic BP Diastolic Pulse Ox 99 09/04/22 21:08 09/04/22 21:08 09/04/22 21:09 Temperature Temperature Source Pulse Rate 81 86 Blood Pressure 129/85 H BP Systolic 129 BP Diastolic 85 Pulse Ox 09/04/22 21:09 09/04/22 21:14 09/04/22 21:14 Temperature Temperature Source Pulse Rate 79 Blood Pressure BP Systolic BP Diastolic Pulse Ox 99 99 09/04/22 21:19 09/04/22 21:19 09/04/22 21:19 Temperature Temperature Source Pulse Rate 88 77 Blood Pressure 140/86 H BP Systolic 140 BP Diastolic 86 Pulse Ox 09/04/22 21:19 09/04/22 21:23 09/04/22 21:23 Temperature Temperature Source Pulse Rate 70 Blood Pressure 127/79 H BP Systolic 127 BP Diastolic 79 Pulse Ox 99 09/04/22 21:24 09/04/22 21:24 09/04/22 21:28 Temperature Temperature Source Pulse Rate 86 Blood Pressure 121/76 H BP Systolic 121 BP Diastolic 76 Pulse Ox 98 09/04/22 21:28 09/04/22 21:30 09/04/22 21:30 Temperature Temperature Source Pulse Rate 70 75 Blood Pressure BP Systolic BP Diastolic Pulse Ox 99 09/04/22 21:34 09/04/22 21:34 09/04/22 21:35 Temperature Temperature Source Pulse Rate 72 79 Blood Pressure 123/81 H BP Systolic 123 BP Diastolic 81 Pulse Ox 09/04/22 21:35 09/04/22 21:39 09/04/22 21:39 Temperature Temperature Source Pulse Rate 74 Blood Pressure 121/76 H BP Systolic 121 BP Diastolic 76 Pulse Ox 99 09/04/22 21:40 09/04/22 21:40 09/04/22 21:43 Temperature Temperature Source Pulse Rate 80 Blood Pressure 120/75 BP Systolic 120 BP Diastolic 75 Pulse Ox 98 09/04/22 21:43 09/04/22 21:45 09/04/22 21:45 Temperature Temperature Source Pulse Rate 71 70 Blood Pressure BP Systolic BP Diastolic Pulse Ox 99 09/04/22 21:48 09/04/22 21:48 09/04/22 21:50 Temperature Temperature Source Pulse Rate 69 77 Blood Pressure 125/79 H BP Systolic 125 BP Diastolic 79 Pulse Ox 09/04/22 21:50 09/04/22 21:54 09/04/22 21:54 Temperature Temperature Source Pulse Rate 65 Blood Pressure 125/81 H BP Systolic 125 BP Diastolic 81 Pulse Ox 99 09/04/22 21:54 09/04/22 21:54 09/04/22 22:25 Temperature 97.3 F L Temperature Source Temporal Pulse Rate Blood Pressure 108/66 BP Systolic 108 BP Diastolic 66 Pulse Ox 09/04/22 22:25 09/04/22 22:55 09/04/22 22:55 Temperature Temperature Source Pulse Rate 71 81 Blood Pressure 106/65 BP Systolic 106 BP Diastolic 65 Pulse Ox 09/04/22 22:55 09/04/22 22:55 09/04/22 22:55 Temperature 96.8 F L Temperature Source Temporal Pulse Rate Blood Pressure BP Systolic BP Diastolic Pulse Ox 98 09/04/22 23:43 06/22/23 23:43 09/04/22 23:43 Temperature Temperature Source Temporal Pulse Rate 78 Blood Pressure 120/76 BP Systolic 120 BP Diastolic 76 Pulse Ox 09/04/22 23:43 09/04/22 23:43 09/05/22 00:11 Temperature 97.7 F L Temperature Source Pulse Rate Blood Pressure 111/73 BP Systolic 111 BP Diastolic 73 Pulse Ox 100 09/05/22 00:11 09/05/22 00:11 09/05/22 00:11 Temperature Temperature Source Temporal Pulse Rate 78 Blood Pressure BP Systolic BP Diastolic Pulse Ox 88 09/05/22 00:11 09/05/22 00:11 09/05/22 00:11 Temperature 97.7 F L Temperature Source Pulse Rate 78 Blood Pressure BP Systolic BP Diastolic Pulse Ox 100 09/05/22 01:04 09/05/22 01:04 09/05/22 01:04 Temperature Temperature Source Temporal Pulse Rate 77 Blood Pressure 121/65 H BP Systolic 121 BP Diastolic 65 Pulse Ox 09/05/22 01:04 09/05/22 01:04 09/05/22 01:44 Temperature 98.0 F Temperature Source Pulse Rate Blood Pressure BP Systolic BP Diastolic Pulse Ox 98 81 09/05/22 01:52 09/05/22 01:52 09/05/22 01:51 Temperature Temperature Source Pulse Rate 92 Blood Pressure 112/69 BP Systolic 112 BP Diastolic 69 Pulse Ox 98 09/05/22 01:51 09/05/22 01:51 09/05/22 01:56 Temperature 98.1 F Temperature Source Temporal Pulse Rate 101 H Blood Pressure BP Systolic BP Diastolic Pulse Ox 09/05/22 01:56 Temperature Temperature Source Pulse Rate Blood Pressure BP Systolic BP Diastolic Pulse Ox 99 Weight Weight: 185 lb Body Mass Index (BMI) 29.0 Physical Exam Const alert, oriented x3 and healthy appearing Constitutional Narrative: uncomfortable with contractions HEENT normocephalic and moist oral mucous membranes Head and Scalp: atraumatic Neck full ROM, no lymphadenopathy, supple and thyroid normal General: trachea midline Thyroid: thyroid normal Lymph Lymphatic: no lymphadenopathy noted Chest inspection of chest normal Resp normal respiratory effort Cardio regular rate GI normal to inspection, nondistended, normoactive bowel sounds, soft to palpation and non-tender Inspection: gravid external exam normal Bimanual Exam - Vag & Uterus: uterus non-tender Manual OB Exam: estimated gestational size appropriate, presentation cephalic, dilated, effaced and station Extremity normal to inspection General Extremity: Negative for edema Skin no rashes or lesions noted Neuro deep tendon reflexes 2+ bilaterally Motor Exam: strength 5/5 throughout and clonus absent Psych mental status grossly normal Labs Labs Labs: Blood Type O POSITIVE Antibody Screen NEGATIVE Hct 35.0 % (37-47) L Hgb 11.4 g/dL (12.0-15.0) L Obstetrics US Syphilis Total Ab Non-reactive VZV IgG Antibody 1429 index (Immune >165) Rubella IgG Antibody Reactive (Nonreactive) Hep Bs Antigen Non-Reactive (Nonreactive) Chlamydia DNA (CHRISTINE) Negative (Negative) Neisseria gonorrhoeae DNA (CHRISTINE) Negative (Negative) HIV 1&2 Antibody Non-Reactive (Nonreactive) Glucose 1 Hr 50 gm 130 mg/dL (70-140) Group B Strep DNA Negative (Negative) Assessment & Plan (1) GERD (gastroesophageal reflux disease): (2) Supervision of normal : COMMENT: [id number] ELEUTERIO 09/16/2022. PC: [facility]. : Dariusz (3) : QUALIFIERS: Weeks of gestation: 39 weeks Qualified Code(s): Z3A.39 - 39 weeks gestation of COMMENT: GBS neg, discussed genetic/carrier and declines, nl anatomy (4) IBS (irritable bowel syndrome): QUALIFIERS: Irritable bowel syndrome type: unspecified Qualified Code(s): K58.9 - Irritable bowel syndrome without diarrhea COMMENT: Has had worsening symptoms during . 2 prior colonoscopies. Discussed safe medications. (5) Active labor at term: PLAN: Plan Patient presents IAL, plan expectant management for , pitocin/AROM PRN if needed. Pain management: plans epidural. GBS neg. Management of any complications: none I have reviewed the [facility] and made any clinically relevant updates.
--- NOTE | 2022-09-05 02:02 | OP.PCM_ITS ---
Assessment & Plan (1) GERD (gastroesophageal reflux disease): (2) Supervision of normal : COMMENT: [id number] ELEUTERIO 09/16/2022. PC: [facility]. : Dariusz (3) : QUALIFIERS: Weeks of gestation: 39 weeks Qualified Code(s): Z3A.39 - 39 weeks gestation of COMMENT: GBS neg, discussed genetic/carrier and declines, nl anatomy (4) IBS (irritable bowel syndrome): QUALIFIERS: Irritable bowel syndrome type: unspecified Qualified Code(s): K58.9 - Irritable bowel syndrome without diarrhea COMMENT: Has had worsening symptoms during . 2 prior colonoscopies. Discussed safe medications. (5) Active labor at term: (6) Vaginal delivery: COMMENT: SM 39 IAL girl Jarrett Maternal Data Information ELEUTERIO Calculator Estimated Delivery Date Method Current WG Current Estimate 09/07/22 Ultrasound #1 39w 5d Other Estimates 09/16/22 LMP (Certain) 38w 3d Vaginal Delivery Operative Information Date of Procedure: 09/05/22 Pre-Operative Diagnosis: see a/p diagnoses Post-Operative Diagnosis: same Surgery / Procedure Performed: Spontaneous Vaginal Delivery Type of Anesthesia: Epidural Special Medications: none Estimated Blood Loss: 300 Fluids Replaced: crystalloid Findings Description of Procedure: Patient began pushing and delivered the head in the ZULMA presentation. The head was delivered atraumatically and a loose nuchal cord ?1 was identified and the infant delivered through without complication. The anterior and posterior shoulders delivered without complication followed by the rest of the infant and the infant was placed on the maternal abdomen. Delayed cord clamping was employed for approximately 60 seconds. Cord was clamped and cut and gentle traction was applied to the cord and the placenta delivered spontaneously immediately following it was noted to be intact with three-vessel cord. The perineum and vagina were inspected and noted to have a first degree perineal laceration which was repaired in the usual fashion with 3-0 vicryl rapide. . EBL was 300. Patient and infant tolerated delivery well. Amniotic Fluid Description: Clear Placental Delivery Description: Spontaneous Placenta Disposition: [facility] Cord Vessel Description: 3 Vessels Cord Entanglement: None Delayed Cord Clamping: Yes Post Vaginal Delivery Medications Given After Delivery: IV Pitocin Episiotomy Description: None Complication Complications: None Procedures Urinary/Genital [id number]: [id number] Vaginal Delivery [facility]
--- NOTE | 2022-09-05 02:04 | DCINST_ITS ---
Discharge Instructions Diet Discharge Diet: No restrictions Activity Discharge Activity: Return to Normal Activity, May Drive, May Shower and May Take a Tub Bath (in 4 weeks) May resume sexual activity in: 6-8 weeks (after seen by OB provider) Weight Bearing Status: Full weight bearing Lifting Restrictions: none Dressing / Incision Call your doctor if you observe: Fever of 101 or Higher, Inability to urinate, Using more than 1 pad per hour (for more than 2 hours in a row or more), Shortness of breath, Dizziness, Chest pain and - (headache not controlled with tylenol, change in vision) Follow Up Care When: in 6 weeks for visit, call the office to make the appointment. If you had elevated blood pressures call the office to be seen within 1 week. Test Results: Test results from this visit will be discussed in further detail at your follow- up appointment, if applicable. Discharge Plan Admission Admit Date/Time: 09/04/22 19:05 Attending Provider: Elizabeth Gilman Primary Care Provider: Phillip Montgomery Discharge Orders/Prescriptions Prescriptions: No Action prenat.vits,gustavo,[id number] Tablet 1 tab PO DAILY famotidine [Pepcid] 20 mg Tablet 20 mg PO DAILY Referrals / Follow Up: Phillip Montgomery MD [Primary Care Provider] -
[2022-09-05] MEDS: 0.9% Saline Lock 10 ML Syringe IV (04:06)
[2022-09-05] MEDS: Senna/Docusate Sodium 1 Tablet PO (09:30)
[2022-09-05] MEDS: Acetaminophen 500 MG Tablet 1000 MG PO ×2 (09:31→19:52)
[2022-09-05] MEDS: Naproxen 500 MG Tablet PO (14:39)
[2022-09-06 02:08] VITALS: BP 115/75; PULSE 71; RESP 15
--- NOTE | 2022-09-06 08:31 | PN.OBGYN_ITS ---
Subjective Subjective Patient doing well without complaints. Tolerating PO. Ambulating and voiding without difficulty. Feeding well. Denies chest pain, shortness of breath, calf pain/swelling, fevers, chills, lightheadedness. Objective Data Objective Data Vital Signs: Vital Signs Temp Pulse Resp BP Pulse Ox O2 Del Method 98.1 F 71 15 115/75 97 Room Air 09/05/22 13:00 09/06/22 02:08 09/06/22 02:08 09/06/22 02:08 09/05/22 19:23 09/06/22 02:08 Oxygen Delivery Method Room Air Weight: 185 lb Body Mass Index (BMI) 29.0 Intake & Output: Intake and Output for Last 24 Hours 09/04/22 09/05/22 09/06/22 23:59 23:59 23:59 Intake Total 1095.00 / 1095.00 1056.67 / 1056.67 500 / 500 Output Total 2 / 2 1250 / 1250 Balance 1093.00 / 1093.00 -193.33 / -193.33 500 / 500 Lab / Micro Data Attestation: I reviewed the patient's lab results. Result Diagrams: 09/04/22 20:00 ROS Constitutional Constitutional: Reports systems reviewed and no addt'l complaints, except as documented; Denies anorexia or headache(s) Cardiovascular Cardiovascular: Reports systems reviewed and no addt'l complaints, except as documented; Denies dizziness, dyspnea, nausea or tachypnea Respiratory/Chest Respiratory/Chest: Reports systems reviewed and no addt'l complaints, except as documented; Denies cough, dyspnea, shortness of breath at rest or tachypnea Gastrointestinal Gastrointestinal: Reports systems reviewed and no addt'l complaints, except as documented; Denies abdominal pain, constipation or nausea Genitourinary Genitourinary: Reports systems reviewed and no addt'l complaints, except as documented; Denies burning urination, difficulty urinating, dysuria, urinary frequency or urinary incontinence Musculoskeletal Musculoskeletal: Reports systems reviewed and no addt'l complaints, except as documented Integumentary Integumentary: Reports systems reviewed and no addt'l complaints, except as documented Neurologic Neurologic: Reports systems reviewed and no addt'l complaints, except as docu mented; Denies abnormal speech, dizziness or headache(s) Psychiatric Psychiatric: Reports systems reviewed and no addt'l complaints, except as documented Endocrine Endocrinology: Reports systems reviewed and no addt'l complaints, except as documented Hematologic/Lymphatic Hematologic/Lymphatic: Reports systems reviewed and no addt'l complaints, except as documented Physical Exam Const alert, oriented x3 and no apparent distress Neck full ROM Resp normal respiratory effort, normal air movement and no retractions Effort and Inspection: able to speak in complete sentences and symmetric chest movement GI soft to palpation Bladder / Kidney Exam: bladder normal to palpation Uterus Palpation: uterus fundus firm Extremity normal to inspection and full ROM Psych mental status grossly normal, thought process normal and cooperative Assessment & Plan (1) Vaginal delivery: COMMENT: SM 39 IAL girl Jarrett PLAN: s/p PPD # 1 1. routine post delivery care 2. breast feeding- support given 3. rh positive 4. rubella immune 5. Discharge Home (2) IBS (irritable bowel syndrome): QUALIFIERS: Irritable bowel syndrome type: unspecified Qualified Code(s): K58.9 - Irritable bowel syndrome without diarrhea COMMENT: Has had worsening symptoms during . 2 prior colonoscop ies. Discussed safe medications. (3) : QUALIFIERS: Weeks of gestation: 39 weeks Qualified Code(s): Z3 A.39 - 39 weeks gestation of COMMENT: GBS neg, discussed genetic/carrier and declines, nl anatomy (4) Supervision of normal : COMMENT: [id number] ELEUTERIO 09/16/2022. PC: [facility]. : Dariusz (5) GERD (gastroesophageal reflux disease): Charges/Coding Multi Select Codes Urinary/Genital Urinary/Genital CPT Codes: No Charge
--- NOTE | 2022-09-06 08:32 | DCINST_ITS ---
Discharge Instructions Diet Discharge Diet: No restrictions Activity May resume sexual activity in: 6-8 weeks (after seen by OB provider) Weight Bearing Status: Full weight bearing Dressing / Incision Call your doctor if you observe: Fever of 101 or Higher, Inability to urinate, Using more than 1 pad per hour (for more than 2 hours in a row or more), Shortness of breath, Dizziness, Chest pain and - (headache not controlled with tylenol, change in vision) Follow Up Care Test Results: Test results from this visit will be discussed in further detail at your follow- up appointment, if applicable. Discharge Plan Admission Admit Date/Time: 09/04/22 19:05 Attending Provider: Elizabeth Gilman Primary Care Provider: Phillip Montgomery Discharge Orders/Prescriptions Prescriptions: No Action prenat.vits,gustavo,[id number] Tablet 1 tab PO DAILY famotidine [Pepcid] 20 mg Tablet 20 mg PO DAILY Referrals / Follow Up: Phillip Montgomery MD [Primary Care Provider] - Disposition Disposition (needs filled in before D/C Order can be placed): Home, Self Care
[2022-09-06] MEDS: Acetaminophen 500 MG Tablet 1000 MG PO (09:10)
--- NOTE | 2022-09-06 15:34 | NURSING ---
Mother called and voicemail left to offer mother a appt for thursday. Mother told RN she was planning to call [employer] for an appt but would also like to see
== END 2022-09-06 09:25 | disposition home or self-care (01) | DRG 807 ==
LOC: WPOUT 19:07 → WP 19:07
PROVIDERS: Admitting Provider Obstetrics & Gynecology; PCP Internal Medicine; Referring Provider Obstetrics & Gynecology; Visit Provider Obstetrics & Gynecology
DX: O70.0 First degree perineal laceration during delivery (principal); Z37.0 Single live birth; K21.9 Gastro-esophageal reflux disease without esophagitis; K58.9 Irritable bowel syndrome, unspecified; O69.81X0 Labor and delivery complicated by cord around neck, without compression, not applicable or unspecified; O99.62 Diseases of the digestive system complicating childbirth; Z3A.39 39 weeks gestation of pregnancy
CPT/HCPCS: 59025; 59050; 85025; 86780; 86850; 86900; 86901; 99221; J7120; A4216; G0378; J2405

== ENCOUNTER → 2022-09-04 | Outpatient (CLI) | payer OTHER, SELFPAY ==
[2022-09-04 16:43] LABS: Protein, Urine (Random) 53.7 mg/dL (<11.9); Protein:Creat Ratio 267 mg/g CRE (0-200)
== END | disposition home or self-care (01) ==
LOC: LABSPEC 15:22
PROVIDERS: PCP Internal Medicine; Referring Provider Obstetrics & Gynecology; Visit Provider Obstetrics & Gynecology
DX: O12.10 Gestational proteinuria, unspecified trimester (principal); Z3A.00 Weeks of gestation of pregnancy not specified
CPT/HCPCS: 82570; 84156

== ENCOUNTER → 2023-09-09 | Outpatient (CLI) | payer OTHER, SELFPAY ==
[2023-09-10 14:10] LABS: t-Transglutaminase IgA <2 U/mL (0-3)
== END | disposition home or self-care (01) ==
PROVIDERS: PCP Internal Medicine; Referring Provider Internal Medicine Gastroenterology; Visit Provider Internal Medicine Gastroenterology
DX: K58.0 Irritable bowel syndrome with diarrhea (principal); K90.41 Non-celiac gluten sensitivity; R14.0 Abdominal distension (gaseous); R14.3 Flatulence; R11.2 Nausea with vomiting, unspecified; R19.7 Diarrhea, unspecified
CPT/HCPCS: 36415; 83516

== ENCOUNTER → 2023-10-29 | Outpatient (CLI) | payer OTHER, SELFPAY ==
[2023-10-29 17:44] LABS: T4 Free Direct 0.79 ng/dL (0.76-1.46)
[2023-11-04 14:09] LABS: HPV APTIMA, High Risk Negative (Negative)
== END | disposition home or self-care (01) ==
PROVIDERS: PCP Internal Medicine; Referring Provider Advanced Practice Midwife; Visit Provider Advanced Practice Midwife
DX: Z12.4 Encounter for screening for malignant neoplasm of cervix (principal); N93.9 Abnormal uterine and vaginal bleeding, unspecified
CPT/HCPCS: 36415; 84439; 84443; 87624; 88175; G0145

== ENCOUNTER → 2024-03-14 | Outpatient (CLI) | payer OTHER, SELFPAY ==
--- NOTE | 2024-03-14 09:03 | US_ITS ---
STUDY: ULTRASOUND BREAST - LEFT REASON FOR EXAM: Female, 33 years old. Palpable mass TECHNIQUE: Axial and longitudinal images of the LEFT breast were performed with a high resolution ultrasound transducer. # OF IMAGES: 45 COMPARISON: Diagnostic mammogram earlier today FINDINGS: LEFT Breast: Heterogeneous background echotexture. Multiple longitudinal and transverse ultrasound images of the inferior left breast do not demonstrate a discrete solid or cystic mass most consistent with normal breast parenchyma.: US/Breast Limited Unilateral IMPRESSION: Normal diagnostic mammogram and left breast ultrasound. However, biopsy of any palpable abnormality should be performed if clinically indicated. ASSESSMENT CATEGORY: BIRADS Category 1: Negative. A letter regarding these results will be sent to the patient by the facility within 30 days. Electronically Signed: Elbert Bermeo MD at 12:05 EST ,
--- NOTE | 2024-03-14 09:03 | BI_ITS ---
MAMMOGRAPHY - BILATERAL DIAGNOSTIC REASON FOR EXAM: Female, 33 years old. left breast mass PERTINENT HISTORY: Non-contributory. TECHNIQUE: Digital examination. Mediolateral oblique (MLO) and craniocaudad (CC) views of both breasts were obtained. CAD: CAD was performed on this study. COMPARISON: None. FINDINGS: Breast Composition: There are scattered areas of fibroglandular density. There are no dominant masses or suspicious calcifications. No other significant abnormalities are identified. BI/DIAG MAMM W/CAD, BILAT IMPRESSION: Stable bilateral diagnostic mammogram. Ultrasound of the palpable abnormality in the lower inner quadrant left breast will be obtained. ASSESSMENT CATEGORY: BIRADS Category 0: Incomplete. Need additional imaging evaluation. A letter regarding these results will be sent to the patient by the facility within 30 days. FOLLOW UP RECOMMENDATION: Ultrasound Recommended. (I) Approximately 10% of breast cancers are not detected by mammography. A normal mammogram should not delay biopsy of a clinically suspicious abnormality. Electronically Signed: Elbert Bermeo MD at 12:03 EST ,
== END | disposition home or self-care (01) ==
LOC: OPBI 09:03
PROVIDERS: PCP Internal Medicine; Referring Provider Nurse Practitioner Women's Health; Visit Provider Nurse Practitioner Women's Health
DX: N63.24 Unspecified lump in the left breast, lower inner quadrant (principal)
CPT/HCPCS: 76642; 77062; 77066; G0279

== ENCOUNTER → 2024-06-22 | Outpatient (CLI) | payer OTHER, SELFPAY ==
--- NOTE | 2024-06-22 14:59 | US_ITS ---
PROCEDURE: BREAST LIMITED UNILATERAL 06/22/2024 REASON FOR EXAM: BREAST LUMP TECHNIQUE: Targeted left breast ultrasound. Imaging of the inferior aspect of the left breast was obtained. FINDINGS: Left breast ultrasound was targeted to the . The breast tissue appears sonographically normal. No cyst, solid mass, or suspicious shadowing. Mildly dilated retroareolar ducts. US/Breast Limited Unilateral IMPRESSION: Impression: Mildly dilated retroareolar ducts. Birads: BI-RADS 2: BENIGN. RECOMMEND ANNUAL MAMMOGRAPHIC SCREENING. Reading Location: [place] [id number]
== END | disposition home or self-care (01) ==
LOC: OPUS 14:58
PROVIDERS: PCP Internal Medicine; Referring Provider Advanced Practice Midwife; Visit Provider Advanced Practice Midwife
DX: N63.24 Unspecified lump in the left breast, lower inner quadrant (principal)
CPT/HCPCS: 76642